=== PATIENT | female | born 1975 | race Caucasian/White ===

== ENCOUNTER 2020-06-23 14:16 | Emergency (ER) | payer MEDICARE, MEDICAID, SELFPAY ==
[2020-06-23 14:30] VITALS: BP 142/100; PULSE 69; RESP 18; TEMP 36.6; O2SAT 100; BMI 25.7
--- NOTE | 2020-06-23 14:47 | XR_ITS ---
WS: [id number] Exam: XR abdomen min 2V [id number] Date/Time of Exam: 06/23/2020 2:47 PM Reason For Exam: chron's disease flare Supine and upright frontal views of the abdomen are submitted. Findings: There is no evidence of bowel obstruction or free air. Visualized organ margins are intact. Bony str uctures of the lumbar spine and pelvis are not remarkable. XR/XR abdomen min 2V [id number] IMPRESSION: Normal abdomen.
[2020-06-23 15:37] VITALS: BP 151/75; PULSE 72; RESP 16; O2SAT 98
--- NOTE | 2020-06-23 15:37 | ED_ITS ---
Documented by User: LUCILA Mcfarlane 06/24/20 10:35 HPI - Abdominal Pain General: Chief Complaint: Abdominal Pain Stated Complaint: Crohn's flare Time Seen by Provider: 06/23/20 15:11 Source: patient Mode of arrival: ambulatory Limitations: no limitations History of Present Illness: HPI narrative: 45-year-old female patient with history of Crohn's disease presents to the emergency department with 2-day onset of nausea vomiting and abdominal pain. She reports periumbilical sharp pain that radiates to her lower pelvis. States taking tramadol for pain is not effective. She denies fever chills, reports diarrhea without blood. She states can not keep food down x 2 days. She has appointment to see Dr. Garcia next week for colonoscopy consult. She is normally on injections for RA/Crohn's disease. She recently moved here from [place]. History of tubal ligation and colonoscopies. Last attempted to eat this morning, 2 bites of hashbrowns. MD elicited complaint: abdominal pain Pertinent past history: other Onset (ago): day(s) (2) Pain Consistency: constant Location: Periumbilical and Suprapubic Severity: moderate Quality: cramping, aching, fullness and sharp Associated Symptoms: Reports bloating, change in bowel habits, GI cramping, nausea, poor appetite and vomiting; Denies chills, constipation, diarrhea, heartburn, hematochezia, hematuria, hematemesis, fecal incontinence and melena Related Data: Date of Last Menstrual Period: 03/28/20 Review of Systems General: Reports: 10 or more systems reviewed and unremarkable except in HPI and below Const: Denies: chills, body aches, fatigue or malaise Eyes: Denies: blurry vision, eye discomfort or eye redness ENMT: Denies: throat pain, dental pain or disequilibrium Card: Denies: chest pain, palpitations or irregular heart rhythm Resp: Denies: dyspnea, productive cough, non-productive cough or wheezing GI: Reports: abdominal pain, nausea, vomiting, bloating, GI cramping and change in bowel habits; Denies: hematemesis, dysphagia, heartburn, diarrhea, constipation, fecal incontinence, pain on defecation, hematochezia or melena : Denies: hematuria Musc: Denies: neck pain, back pain, joint pain, joint warmth, joint stiffness, muscle cramps or muscle weakness Skin/Breast: Denies: rash or pruritus Neuro: Denies: headache(s), weakness in extremities or behavioral changes Henry/Lymph: Denies: easy bruising PFSH ED PFSH: Medical History Crohn's disease Degenerative disc disease Migraine Pulmonary embolism Rheumatoid arthritis Surgical History History of colonoscopy History of tubal ligation Female Reproductive History: Date of last menstrual period: 03/28/20 Physical Exam Const: COMMON NORMALS: no acute distress, patient oriented x3, alert and well nourished EXAM LIMITATIONS: no altered mental status and no physical limitations GENERAL APPEARANCE: cooperative, well kempt, well developed and well hydrated; not in distress, not anxious, not ill appearing and not frail appearing NUTRITIONAL APPEARANCE: overweight ORIENTATION/CONSCIOUSNESS: Yes awake, Yes oriented to person, Yes oriented to place and Yes oriented to time HENMT: COMMON NORMALS: normocephalic, atraumatic, EAC's normal, Normal external nose present and moist oral mucous membranes HEAD & SCALP: normal to inspection, normocephalic and atraumatic FACE & SINUS: normal facial exam and face symmetric NOSE: Normal external nose present GENERAL EAR: hearing grossly impaired EXTERNAL AUDITORY CANAL: EAC's normal MOUTH: moist mucous membranes abnormal (dry) Eye: COMMON NORMALS: Equal, round and reactive pupils present and EOMs intact bilaterally GENERAL EYE: appearance normal, both eyes and all related structures PUPIL: Yes Equal, round and reactive pupils present Neck/C-Spine: COMMON NORMALS: full ROM and no lymphadenopathy GENERAL: Yes normal visual inspection and Yes trachea midline CERVICAL SPINE: Yes cervical ROM normal Lymph: LYMPHATIC: no lymphadenopathy noted Chest: COMMONS NORMALS: normal inspection of the chest and normal palpation of entire chest wall Resp: COMMON NORMALS: normal respiratory effort, No retractions, No use of accessory muscles and clear to auscultation bilaterally EFFORT & INSPECTION: Yes able to speak in complete sentences, No abnormal respiratory pattern, No labored and No audible wheezes AUSCULTATION: clear to auscultation bilaterally Cardio: COMMON NORMALS: regular rate, regular rhythm, S1 normal heart sound present, S2 normal heart sound present and Peripheral pulses 2+ throughout RATE: regular rate RHYTHM: regular rhythm HEART SOUNDS: S1 normal heart sound present and S2 normal heart sound present PERIPHERAL PULSES: Peripheral pulses 2+ throughout GI: COMMON NORMALS: Soft to palpation INSPECTION: Yes normal to inspection, No abdominal wall ecchymosis, Yes abdominal distension, Yes central obesity, No visible herniation and No Localized GI swelling present AUSCULTATION: Yes Hypoactive bowel sounds present PALPATION: Yes Soft to palpation and Yes Tenderness to palpation present (GI) Details: other (Central periumbilical and lower pelvis) : COMMON NORMALS: Yes no CVA tenderness BLADDER/KIDNEY EXAM: Yes no CVA tenderness Back/Pelvis: COMMON NORMALS: no CVA tenderness and thoracic and lumbar spine normal to inspection Extremity: COMMON NORMALS: normal to inspection and capillary refill normal Neuro: COMMON NORMALS: patient oriented x3 and no focal motor deficits SENSORIUM/ORIENTATION: Yes alert, Yes oriented to person, Yes oriented to place and Yes oriented to time Psych: COMMON NORMALS: mental status grossly normal, Normal thought process present and cooperative APPEARANCE: Yes well kempt ACTIVITY/MOTOR BEHAVIOR: Yes appropriate eye contact THOUGHT PROCESS: Normal thought process present Skin: COMMON NORMALS: no rashes or lesions noted and turgor normal GENERAL SKIN EXAM: no rashes or lesions noted and turgor normal Course Vital Signs: Vital signs: Vital Signs Temperature 97.8 F 06/23/20 14:30 Pulse Rate 68 06/23/20 19:16 Respiratory Rate 17 06/23/20 19:16 Blood Pressure 144/80 06/23/20 19:16 Pulse Oximetry 97 06/23/20 19:16 MDM - Abdominal Pain Lab Data: Labs: Lab Results 06/23/20 06/23/20 06/23/20 Range/Units 17:15 17:15 17:15 WBC 3.6 L (4.0-10.0) 10^3/ uL RBC 4.02 L (4.1-5.3) 10^6/u L Hgb 13.0 (11.5-15.3) g/dL Hct 37.4 (37.0-47.0) % MCV 93.0 (81-99) fL MCH 32.3 (28.0-34.0) pg MCHC 34.8 (30.0-36.0) g/dL RDW 12.0 L (12.1-15.1) % Plt Count 276 (130-400) 10^3/c mm MPV 9.7 (7.4-10.4) fL Neut % (Auto) 43.6 % Lymph % (Auto) 41.3 % Logan % (Auto) 10.6 % Eos % (Auto) 2.8 % Baso % (Auto) 1.7 % Neut # (Auto) 1.56 L (1.8-7.7) 10^3/u L Lymph # (Auto) 1.5 (0.8-4.8) 10^3/u L Logan # (Auto) 0.4 (0.2-0.9) 10^3/u L Eos # (Auto) 0.1 (0.0-0.8) 10^3/u L Baso # (Auto) 0.1 (0.0-0.1) 10^3/u L Nucleated RBC % (a uto) 0 % Nucleated RBCs # 0.0 /100WBC ESR 14 (0-15) mm/hr Sodium 138 (136-145) mmol/L Potassium 3.7 (3.5-5.1) mmol/L Chloride 106 (98-107) mmol/L Carbon Dioxide 23 (22-29) mmol/L Anion Gap 12.7 (5-19) BUN 6 (6-20) mg/dL Creatinine 0.7 (0.5-0.9) mg/dL GFR Calculation 90.9 (90-130) mL/min Glucose 83 (65-115) mg/dL Calculated Osmolal ity 283 L (285-295) mOsm/k g Calcium 9.3 (8.5-10.5) mg/dL Total Bilirubin 0.5 (0.15-1.2) mg/dL AST 40 H (0-32) U/L ALT 35 H (0-33) U/L Alkaline Phosphata se 51 (35-105) IU/L C-Reactive Protein 0.3 (0.0-4.9) mg/L Total Protein 7.7 (6.6-8.7) g/dL Albumin 4.2 (3.5-5.2) g/dL Globulin 3.5 (1.3-4.6) g/dL Lipase 29 (13-60) U/L HCG, Qual (Negative) 06/23/20 Range/Units 17:15 WBC (4.0-10.0) 10^3/ uL RBC (4.1-5.3) 10^6/u L Hgb (11.5-15.3) g/dL Hct (37.0-47.0) % MCV (81-99) fL MCH (28.0-34.0) pg MCHC (30.0-36.0) g/dL RDW (12.1-15.1) % Plt Count (130-400) 10^3/c mm MPV (7.4-10.4) fL Neut % (Auto) % Lymph % (Auto) % Logan % (Auto) % Eos % (Auto) % Baso % (Auto) % Neut # (Auto) (1.8-7.7) 10^3/u L Lymph # (Auto) (0.8-4.8) 10^3/u L Logan # (Auto) (0.2-0.9) 10^3/u L Eos # (Auto) (0.0-0.8) 10^3/u L Baso # (Auto) (0.0-0.1) 10^3/u L Nucleated RBC % (a uto) % Nucleated RBCs # /100WBC ESR (0-15) mm/hr Sodium (136-145) mmol/L Potassium (3.5-5.1) mmol/L Chloride (98-107) mmol/L Carbon Dioxide (22-29) mmol/L Anion Gap (5-19) BUN (6-20) mg/dL Creatinine (0.5-0.9) mg/dL GFR Calculation (90-130) mL/min Glucose (65-115) mg/dL Calculated Osmolal ity (285-295) mOsm/k g Calcium (8.5-10.5) mg/dL Total Bilirubin (0.15-1.2) mg/dL AST (0-32) U/L ALT (0-33) U/L Alkaline Phosphata se (35-105) IU/L C-Reactive Protein (0.0-4.9) mg/L Total Protein (6.6-8.7) g/dL Albumin (3.5-5.2) g/dL Globulin (1.3-4.6) g/dL Lipase (13-60) U/L HCG, Qual Negative (Negative) Discharge Plan Discharge Patient Disposition: Home Clinical Impression: Crohn's disease Qualifiers: Gastrointestinal tract location: small intestine Digestive disease complication type: without complication Qualified Code(s): K50.00 - Crohn's disease of small intestine without complications Condition: Stable Prescriptions: New prednisone 50 mg tablet 50 mg PO DAILY 7 Days Qty: 7 RF: 0 Zofran 4 mg tablet 4 mg PO Q8H PRN (Reason: Nausea) Qty: 20 RF: 0 No Action multivitamin Tablet 1 tab PO DAILY RF: 0 BuSpar 5 mg Tablet 5 mg PO TID RF: 0 atorvastatin 10 mg tablet 10 mg PO QAM RF: 0 Celexa 10 mg Tablet 10 mg PO DAILY RF: 0 tramadol 50 mg tablet 50 mg PO Q6H PRN (Reason: Pain) RF: 0 verapamil 120 mg Tablet 120 mg PO BID RF: 0 Benadryl 25 mg Capsule 25 - 50 mg PO PRN RF: 0 Nexium 40 mg Capsule,Delayed Release(Dr/Ec) 40 mg PO DAILY RF: 0 ropinirole 0.5 mg tablet 0.5 mg PO BEDTIME RF: 0 Singulair 10 mg Tablet 10 mg PO QPM RF: 0 Symbicort 80-4.5 mcg/actuation Hfa Aerosol Inhaler 2 puff INHALATION BID RF: 0 melatonin 10 mg Tablet 10 mg PO PRN RF: 0 Emgality Pen 120 mg/mL pen injector 120 mg SUBCUT Q30D RF: 0 Discharge Orders: Discharge ED (Routine); Ordered 06/23/20 Ordered By: Tariq Benitez Referrals: Joaquín Newman MD [Primary Care Provider] - Discharge Diet: Advance as tolerated Discharge Activity: Increase activity as tolerated Patient Instructions: Crohn's Disease Activity Restrictions/Additional Instructions: Follow-up with medical provider as directed. Go to your scheduled appointment with Dr. Garcia next week to reevaluate Crohn's flare. Take medications as prescribed. Return to the ER or your medical provider if condition worsens. Please read and understand discharge instructions. If any questions, please ask. Sign Out Sign Out Data: Patient Sign Out occurred on 06/23/20 at 17:24. Patient's care was discussed, and care was transferred from LUCILA Mcfarlane to JOSE Paez. Sign Out Comment: transfer of care due to end of shift, difficulty with iv insertion, several IV attempts made, lab to obtain serology draw, CT scan abdomen and pelvis pending. Last updated by Fernanda Mohamud ARNP at 06/23/20 16:57 Coding Level of Care Code ED Agricultural Equipment Sales Manager for Chg Fwd Exam Comprehensive Documented by User: JOSE Paez 06/24/20 00:50 HPI - Abdominal Pain General: Chief Complaint: Abdominal Pain Stated Complaint: Crohn's flare Time Seen by Provider: 06/23/20 15:11 PFSH ED PFSH: Medical History Crohn's disease Degenerative disc disease Migraine Pulmonary embolism Rheumatoid arthritis Surgical History History of colonoscopy History of tubal ligation Course Vital Signs: Vital signs: Vital Signs Temperature 97.8 F 06/23/20 14:30 Pulse Rate 68 06/23/20 19:16 Respiratory Rate 17 06/23/20 19:16 Blood Pressure 144/80 06/23/20 19:16 Pulse Oximetry 97 06/23/20 19:16 MDM - Abdominal Pain MDM Narrative: Medical decision making narrative: Patient is a 45-year-old female who comes to the ED with abdominal pain, nausea/vomiting and diarrhea. Patient has a past medical history of Crohn's disease and states that this is similar to her past Crohn's flares. Patient appears nontoxic and is in no acute distress or pain. CBC and CMP were unremarkable. CT of the abdomen pelvis shows small bowel inflammatory signs suggestive of Crohn's disease. Patient was given IV fluids, Dilaudid and Zofran and her symptoms improved. She was also given IV Solu-Medrol while here in the ED. Patient was diagnosed with Crohn's disease and sent home with prescription of prednisone and [place] for pain. Patient already has a previously scheduled appointment with Dr. Mora in a week. Return to ED precautions given. Patient understood and agree with plan. Lab Data: Attestation: I reviewed the patient's lab results. Labs: Lab Results 06/23/20 06/23/20 06/23/20 Range/Units 17:15 17:15 17:15 WBC 3.6 L (4.0-10.0) 10^3/ uL RBC 4.02 L (4.1-5.3) 10^6/u L Hgb 13.0 (11.5-15.3) g/dL Hct 37.4 (37.0-47.0) % MCV 93.0 (81-99) fL MCH 32.3 (28.0-34.0) pg MCHC 34.8 (30.0-36.0) g/dL RDW 12.0 L (12.1-15.1) % Plt Count 276 (130-400) 10^3/c mm MPV 9.7 (7.4-10.4) fL Neut % (Auto) 43.6 % Lymph % (Auto) 41.3 % Logan % (Auto) 10.6 % Eos % (Auto) 2.8 % Baso % (Auto) 1.7 % Neut # (Auto) 1.56 L (1.8-7.7) 10^3/u L Lymph # (Auto) 1.5 (0.8-4.8) 10^3/u L Logan # (Auto) 0.4 (0.2-0.9) 10^3/u L Eos # (Auto) 0.1 (0.0-0.8) 10^3/u L Baso # (Auto) 0.1 (0.0-0.1) 10^3/u L Nucleated RBC % (a uto) 0 % Nucleated RBCs # 0.0 /100WBC ESR 14 (0-15) mm/hr Sodium 138 (136-145) mmol/L Potassium 3.7 (3.5-5.1) mmol/L Chloride 106 (98-107) mmol/L Carbon Dioxide 23 (22-29) mmol/L Anion Gap 12.7 (5-19) BUN 6 (6-20) mg/dL Creatinine 0.7 (0.5-0.9) mg/dL GFR Calculation 90.9 (90-130) mL/min Glucose 83 (65-115) mg/dL Calculated Osmolal ity 283 L (285-295) mOsm/k g Calcium 9.3 (8.5-10.5) mg/dL Total Bilirubin 0.5 (0.15-1.2) mg/dL AST 40 H (0-32) U/L ALT 35 H (0-33) U/L Alkaline Phosphata se 51 (35-105) IU/L C-Reactive Protein 0.3 (0.0-4.9) mg/L Total Protein 7.7 (6.6-8.7) g/dL Albumin 4.2 (3.5-5.2) g/dL Globulin 3.5 (1.3-4.6) g/dL Lipase 29 (13-60) U/L HCG, Qual (Negative) 06/23/20 Range/Units 17:15 WBC (4.0-10.0) 10^3/ uL RBC (4.1-5.3) 10^6/u L Hgb (11.5-15.3) g/dL Hct (37.0-47.0) % MCV (81-99) fL MCH (28.0-34.0) pg MCHC (30.0-36.0) g/dL RDW (12.1-15.1) % Plt Count (130-400) 10^3/c mm MPV (7.4-10.4) fL Neut % (Auto) % Lymph % (Auto) % Logan % (Auto) % Eos % (Auto) % Baso % (Auto) % Neut # (Auto) (1.8-7.7) 10^3/u L Lymph # (Auto) (0.8-4.8) 10^3/u L Logan # (Auto) (0.2-0.9) 10^3/u L Eos # (Auto) (0.0-0.8) 10^3/u L Baso # (Auto) (0.0-0.1) 10^3/u L Nucleated RBC % (a uto) % Nucleated RBCs # /100WBC ESR (0-15) mm/hr Sodium (136-145) mmol/L Potassium (3.5-5.1) mmol/L Chloride (98-107) mmol/L Carbon Dioxide (22-29) mmol/L Anion Gap (5-19) BUN (6-20) mg/dL Creatinine (0.5-0.9) mg/dL GFR Calculation (90-130) mL/min Glucose (65-115) mg/dL Calculated Osmolal ity (285-295) mOsm/k g Calcium (8.5-10.5) mg/dL Total Bilirubin (0.15-1.2) mg/dL AST (0-32) U/L ALT (0-33) U/L Alkaline Phosphata se (35-105) IU/L C-Reactive Protein (0.0-4.9) mg/L Total Protein (6.6-8.7) g/dL Albumin (3.5-5.2) g/dL Globulin (1.3-4.6) g/dL Lipase (13-60) U/L HCG, Qual Negative (Negative) Imaging Data ^: CT Abd/Pel: Attestation: I personally reviewed and interpreted this imaging study as follows: Radiologist's impression: [address] [address] [address] Scan Report Signed Patient: Angie Schultz Unit #: [id number] : 1975 Age/Sex: 45 / F ADM Date: 06/23/20 Loc: ER Room/Bed: Attending Dr: Ordering Provider/Ordering MD: Fernanda Mohamud Date of Service: 06/23/20 Procedure(s): CT abdomen pelvis w con* [id number] Accession Number(s): [id number] Report Number: [id number] PROCEDURE INFORMATION: Exam: CT Abdomen And Pelvis With Contrast Exam date and time: 06/23/2020 4:44 PM Age: 45 years old Clinical indication: Abdominal pain; Patient HX: C/O periumbilical pain w n/v/d HX of crohns dz; Additional info: Chron's disease, abd pain with bloating TECHNIQUE: Imaging protocol: Computed tomography of the abdomen and pelvis with contrast. Radiation optimization: All CT scans at this facility use at least one of these dose optimization techniques: automated exposure control; mA and/or kV adjustment per patient size (includes targeted exams where dose is matched to clinical indication); or iterative reconstruction. Contrast material: OMNI 300; Contrast volume: 95 ml; Contrast route: INTRAVENOUS (IV); COMPARISON: CT Abdomen/Pelvis [facility] [id number] 06/19/2016 6:22 PM RADIATION DOSE METRICS: Total DLP (mGy-cm): 626.65 FINDINGS: Lungs: There is subpleural atelectasis of the dependent portions of the lungs. Mediastinal space: A small hiatal hernia is present. Liver: Unremarkable.No mass. Gallbladder and bile ducts: Normal. No calcified stones. No ductal dilation. Pancreas: Normal. No ductal dilation. Spleen: Normal. No splenomegaly. Adrenal glands: Normal. No mass. Kidneys and ureters: There is no evidence of hydronephrosis. There is no evidence of renal calcifications. Stomach and bowel: There is no evidence of intestinal perforation or obstruction. There is moderately excessive colonic stool content. There is no evidence of colitis/diverticulitis. There is a small bowel feces sign involving loops of bowel in the lower abdomen/pelvis. These loops of bowel also demonstrate mild wall thickening and enhancement concerning for very mild inflammatory changes including Crohn's. The proximal loops of small bowel are unremarkable. There is no evidence of intestinal perforation or obstruction. Appendix: A normal appendix is identified. Intraperitoneal space: Unremarkable. No free air. No significant fluid collection. Vasculature: The aorta is normal. Lymph nodes: Unremarkable.No enlarged lymph nodes. Urinary bladder: The bladder is decompressed. Reproductive: Uterus and left ovary are unremarkable. There is an incidental 1.3 cm right ovarian cyst. Bones/joints: Unremarkable. No acute fracture. Soft tissues: Unremarkable. CT/CT abdomen pelvis w con* [id number] IMPRESSION: Mild wall thickening and small bowel feces sign involving loops of small bowel in the lower abdomen compatible with mild inflammatory changes such as Crohn's. No colitis. Radiation Dose CTDIVOL = (mGy): DLP = 626.65 (mGy-cm) Dictated By: Ratna Le Signed By: Ratna Le Signed Date/Time: 1758 DD/ 56 Discharge Plan Discharge Patient Disposition: Home Clinical Impression: Crohn's disease Qualifiers: Gastrointestinal tract location: small intestine Digestive disease complication type: without complication Qualified Code(s): K50.00 - Crohn's disease of small intestine without complications Condition: Stable Prescriptions: New prednisone 50 mg tablet 50 mg PO DAILY 7 Days Qty: 7 RF: 0 Zofran 4 mg tablet 4 mg PO Q8H PRN (Reason: Nausea) Qty: 20 RF: 0 No Action multivitamin Tablet 1 tab PO DAILY RF: 0 BuSpar 5 mg Tablet 5 mg PO TID RF: 0 atorvastatin 10 mg tablet 10 mg PO QAM RF: 0 Celexa 10 mg Tablet 10 mg PO DAILY RF: 0 tramadol 50 mg tablet 50 mg PO Q6H PRN (Reason: Pain) RF: 0 verapamil 120 mg Tablet 120 mg PO BID RF: 0 Benadryl 25 mg Capsule 25 - 50 mg PO PRN RF: 0 Nexium 40 mg Capsule,Delayed Release(Dr/Ec) 40 mg PO DAILY RF: 0 ropinirole 0.5 mg tablet 0.5 mg PO BEDTIME RF: 0 Singulair 10 mg Tablet 10 mg PO QPM RF: 0 Symbicort 80-4.5 mcg/actuation Hfa Aerosol Inhaler 2 puff INHALATION BID RF: 0 melatonin 10 mg Tablet 10 mg PO PRN RF: 0 Emgality Pen 120 mg/mL pen injector 120 mg SUBCUT Q30D RF: 0 Discharge Orders: Discharge ED (Routine); Ordered 06/23/20 Ordered By: Tariq Benitez Referrals: Joaquín Newman MD [Primary Care Provider] - Discharge Diet: Advance as tolerated Discharge Activity: Increase activity as tolerated Patient Instructions: Crohn's Disease Activity Restrictions/Additional Instructions: Follow-up with medical provider as directed. Go to your scheduled appointment with Dr. Garcia next week to reevaluate Crohn's flare. Take medications as p rescribed. Return to the ER or your medical provider if condition worsens. Please read and understand discharge instructions. If any questions, please ask. Sign Out Sign Out Data: Patient Sign Out occurred on 06/23/20 at 17:24. Patient's care was discussed, and care was transferred from LUCILA Mcfarlane to JOSE Paez. Sign Out Comment: transfer of care due to end of shift, difficulty with iv insertion, several IV attempts made, lab to obtain serology draw, CT scan abdomen and pelvis pending. Last updated by Fernanda Mohamud ARNP at 06/23/20 16:57 Coding Level of Care Code ED Agricultural Equipment Sales Manager for Chg Fwd Exam Comprehensive
--- NOTE | 2020-06-23 15:45 | CTR_ITS ---
PROCEDURE INFORMATION: Exam: CT Abdomen And Pelvis With Contrast Exam date and time: 06/23/2020 4:44 PM Age: 45 years old Clinical indication: Abdominal pain; Patient HX: C/O periumbilical pain w n/v/d HX of crohns dz; Additional info: Chron's disease, abd pain with bloating TECHNIQUE: Imaging protocol: Computed tomography of the abdomen and pelvis with contrast. Radiation optimization: All CT scans at this facility use at least one of these dose optimization techniques: automated exposure control; mA and/or kV adjustment per patient size (includes targeted exams where dose is matched to clinical indication); or iterative reconstruction. Contrast material: OMNI 300; Contrast volume: 95 ml; Contrast route: INTRAVENOUS (IV); COMPARISON: [place]domen[place] o [id number] 06/19/2016 6:22 PM RADIATION DOSE METRICS: Total DLP (mGy-cm): 626.65 FINDINGS: Lungs: There is subpleural atelectasis of the dependent portions of the lungs. Mediastinal space: A small hiatal hernia is present. Liver: Unremarkable.No mass. Gallbladder and bile ducts: Normal. No calcified stones. No ductal dilation. Pancreas: Normal. No ductal dilation. Spleen: Normal. No splenomegaly. Adrenal glands: Normal. No mass. Kidneys and ureters: There is no evidence of hydronephrosis. There is no evidence of renal calcifications. Stomach and bowel: There is no evidence of intestinal perforation or obstruction. There is moderately excessive colonic stool content. There is no evidence of colitis/diverticulitis. There is a small bowel feces sign involving loops of bowel in the lower abdomen/pelvis. These loops of bowel also demonstrate mild wall thickening and enhancement concerning for very mild inflammatory changes including Crohn's. The proximal loops of small bowel are unremarkable. There is no evidence of intestinal perforation or obstruction. Appendix: A normal appendix is identified. Intraperitoneal space: Unremarkable. No free air. No significant fluid collection. Vasculature: The aorta is normal. Lymph nodes: Unremarkable.No enlarged lymph nodes. Urinary bladder: The bladder is decompressed. Reproductive: Uterus and left ovary are unremarkable. There is an incidental 1.3 cm right ovarian cyst. Bones/joints: Unremarkable. No acute fracture. Soft tissues: Unremarkable. CT/CT abdomen pelvis w con* [id number] IMPRESSION: Mild wall thickening and small bowel feces sign involving loops of small bowel in the lower abdomen compatible with mild inflammatory changes such as Crohn's. No colitis. Radiation Dose CTDIVOL = (mGy): DLP = 626.65 (mGy-cm)
[2020-06-23] MEDS: ondansetron 2 mg/ML SDV 2 mL 4 MG IVP (16:57)
[2020-06-23] MEDS: metoclopramide 5 mg/mL SDV 2 mL 10 MG IVP (16:57)
[2020-06-23 17:29] LABS: Basophils # 0.1 10^3/uL (0.0-0.1); Basophils % 1.7 %; Eosinophils # 0.1 10^3/uL (0.0-0.8); Eosinophils % 2.8 %; Hematocrit 37.4 % (37.0-47.0); Lymphocytes # 1.5 10^3/uL (0.8-4.8); Lymphocytes % 41.3 %; Mean Corpuscular HGB Conc 34.8 g/dL (30.0-36.0); Mean Corpuscular Hemoglobin 32.3 pg (28.0-34.0); Mean Platelet Volume 9.7 fL (7.4-10.4); Monocytes # 0.4 10^3/uL (0.2-0.9); Monocytes % 10.6 %; Neutrophils # 1.56 10^3/uL (1.8-7.7); Neutrophils % 43.6 %; Nucleated Red Blood Cells % 0 %; Platelet Count 276 10^3/cmm (130-400); Red Blood Count 4.02 10^6/uL (4.1-5.3); White Blood Count 3.6 10^3/uL (4.0-10.0)
[2020-06-23] MEDS: iohexol 300 mg/mL 100 mL Btl IV (17:33)
[2020-06-23 17:42] LABS: HCG, Serum Qual Negative (Negative)
[2020-06-23 17:56] LABS: Alanine Aminotransferase 35 U/L (0-33); Albumin Level 4.2 g/dL (3.5-5.2); Alkaline Phosphatase 51 IU/L (35-105); Anion Gap 12.7 (5-19); Aspartate Amino Transferase 40 U/L (0-32); Blood Urea Nitrogen 6 mg/dL (6-20); C Reactive Protein 0.3 mg/L (0.0-4.9); Calcium 9.3 mg/dL (8.5-10.5); Carbon Dioxide 23 mmol/L (22-29); Chloride 106 mmol/L (98-107); Globulin 3.5 g/dL (1.3-4.6); Glomerular Filtration Rate 90.9 mL/min (90-130); Glucose 83 mg/dL (65-115); Lipase 29 U/L (13-60); Osmolality Calculated 283 mOsm/kg (285-295); Potassium 3.7 mmol/L (3.5-5.1); Sodium 138 mmol/L (136-145); Total Bilirubin 0.5 mg/dL (0.15-1.2); Total Protein 7.7 g/dL (6.6-8.7)
[2020-06-23 18:15] LABS: Erythrocyte Sedimentation Rate 14 mm/hr (0-15)
[2020-06-23] MEDS: HYDROmorphone 1 mg/mL INJ 1 mL IVP (18:36)
[2020-06-23 19:16] VITALS: BP 144/80; PULSE 68; RESP 17; O2SAT 97
== END 2020-06-23 19:18 | disposition home or self-care (01) ==
PROVIDERS: Nurse Practitioner Family; Emergency Provider Physician Assistant; PCP Family Medicine
DX: K50.00 Crohn's disease of small intestine without complications (principal)
CPT/HCPCS: 36415; 74019; 74177; 80053; 83690; 84703; 85025; 85651; 86140; 96361; 96374; 96375; 99284; J0131; J1170; J2405; J2765; J2930; Q9967

== ENCOUNTER 2020-07-01 02:26 | Emergency (ER) | payer MEDICARE, MEDICAID, SELFPAY ==
[2020-07-01 02:29] VITALS: BP 138/80; PULSE 66; RESP 18; TEMP 36.5; O2SAT 100; BMI 25.7
--- NOTE | 2020-07-01 02:30 | W.ED.PSYCH ---
HPI - Psych General: Chief Complaint: Psychiatric Symptoms Stated Complaint: STRESSED AND ETOH Time Seen by Provider: 07/01/20 02:30 Source: patient Mode of arrival: ambulatory Limitations: no limitations History of Present Illness: HPI Narrative: 45-year-old female comes in today with complaints of alcohol intoxication and stress. Patient states that she had had approximately 3 drinks and had been arguing with her which causes her to get very anxious and stressed. Patient reports that when she gets like this she has seizures and she was concerned that she may have a seizure. Patient then came to the ER for evaluation. Patient denies any suicidal thought or homicidal ideation. Review of Systems General: Reports: 10 or more systems reviewed and unremarkable except in HPI and below Psych: Reports: other (Alcohol intoxication.) PFSH ED PFSH: Medical History Crohn's disease Degenerative disc disease Migraine Pulmonary embolism Rheumatoid arthritis Surgical History History of colonoscopy History of tubal ligation Female Reproductive History: Date of last menstrual period: 03/28/20 Physical Exam Const: COMMON NORMALS: no acute distress and patient oriented x3 GENERAL APPEARANCE: cooperative HENMT: COMMON NORMALS: normocephalic and Normal external nose present HEAD & SCALP: normal to inspection and normocephalic NOSE: Normal external nose present MOUTH: Normal oral and palatal mucosa present Eye: GENERAL EYE: appearance normal, both eyes and all related structures Neck/C-Spine: COMMON NORMALS: full ROM Chest: COMMONS NORMALS: normal inspection of the chest Resp: COMMON NORMALS: normal respiratory effort EFFORT & INSPECTION: Yes able to speak in complete sentences Cardio: COMMON NORMALS: regular rate and regular rhythm RATE: regular rate RHYTHM: regular rhythm GI: COMMON NORMALS: non-tender Back/Pelvis: COMMON NORMALS: thoracic and lumbar spine normal to inspection Extremity: COMMON NORMALS: normal to inspection Neuro: COMMON NORMALS: patient oriented x3 and moves all extremities Psych: COMMON NORMALS: mental status grossly normal and cooperative Skin: COMMON NORMALS: no rashes or lesions noted GENERAL SKIN EXAM: no rashes or lesions noted MDM - Psych MDM Narrative: Medical decision making narrative: Patient comes in today for concerns of pseudoseizure. Patient has a history of seizures when she becomes stressed. On exam patient is intoxicated. Patient responds appropriately. No signs of seizures. Differential diagnosis includes but not limited to anxiety, alcohol intoxication, suicidal ideation. Patient denied any suicidal homicidal intent or thought. Patient was cooperative throughout the exam. And patient denied any other concerns. Discharge Plan Discharge Patient Disposition: Home Clinical Impression: Alcohol intoxication Qualifiers: Complication of substance-induced condition: uncomplicated Qualified Code(s): F10.920 - Alcohol use, unspecified with intoxication, uncomplicated Condition: Stable Prescriptions: No Action multivitamin Tablet 1 tab PO DAILY RF: 0 BuSpar 5 mg Tablet 5 mg PO TID RF: 0 atorvastatin 10 mg tablet 10 mg PO QAM RF: 0 Celexa 10 mg Tablet 10 mg PO DAILY RF: 0 tramadol 50 mg tablet 50 mg PO Q6H PRN (Reason: Pain) RF: 0 verapamil 120 mg Tablet 120 mg PO BID RF: 0 Benadryl 25 mg Capsule 25 - 50 mg PO PRN RF: 0 Nexium 40 mg Capsule,Delayed Release(Dr/Ec) 40 mg PO DAILY RF: 0 ropinirole 0.5 mg tablet 0.5 mg PO BEDTIME RF: 0 Singulair 10 mg Tablet 10 mg PO QPM RF: 0 Symbicort 80-4.5 mcg/actuation Hfa Aerosol Inhaler 2 puff INHALATION BID RF: 0 melatonin 10 mg Tablet 10 mg PO PRN RF: 0 Emgality Pen 120 mg/mL pen injector 120 mg SUBCUT Q30D RF: 0 Zofran 4 mg tablet 4 mg PO Q8H PRN (Reason: Nausea) Qty: 20 RF: 0 Discharge Orders: Discharge ED (Routine); Ordered 07/01/20 Ordered By: Reed Herrera Referrals: Joaquín Newman MD [Primary Care Provider] - Discharge Diet: Usual diet Discharge Activity: Increase activity as tolerated Patient Instructions: Abuse of Alcohol (ED), Opioid Safety Activity Restrictions/Additional Instructions: Home and rest. Drink plenty of fluids. Activity as tolerated. 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
[2020-07-01 02:39] VITALS: BP 138/80; PULSE 118; RESP 18; O2SAT 99
[2020-07-01] MEDS: LORazepam 0.5 mg Tablet PO (02:50)
[2020-07-01 02:51] VITALS: BP 130/83; PULSE 111; RESP 17; O2SAT 98
== END 2020-07-01 02:52 | disposition home or self-care (01) ==
LOC: ER 02:45
PROVIDERS: Emergency Provider Nurse Practitioner Family; PCP Family Medicine
DX: F10.920 Alcohol use, unspecified with intoxication, uncomplicated (principal)
CPT/HCPCS: 99283

== ENCOUNTER 2020-08-05 20:17 | Emergency (ER) | payer MEDICARE, MEDICAID, SELFPAY ==
[2020-08-05 20:27] VITALS: BP 154/116; PULSE 112; RESP 28; TEMP 36.3; O2SAT 100; BMI 25.9
--- NOTE | 2020-08-05 22:08 | ED_ITS ---
HPI - Allergic Reaction General: Chief complaint: Allergic Reaction Stated complaint: allergic reaction Time Seen by Provider: 08/05/20 22:08 Source: patient Mode of arrival: ambulatory Limitations: no limitations History of Present Illness: HPI narrative: Patient comes in today for complaints of rash starting this morning when she woke up. Patient taken 1 dose of doxycycline last night and noticed a rash to her neck and chest this morning. Patient came in tonight for evaluation. Patient appears well and in no distress but occasionally makes a gasping respiration. When questioned about this is patient states that this is due to her bronchitis. Patient is able to talk in full sentences and there is no sign of significant respiratory distress at this time. complaint: other (Rash) Onset (ago): day(s) Exposure: medication Associated symptoms: Reports no associated symptoms Treatment prior to arrival: benadryl Previous Allergic Reaction History: none Review of Systems General: Reports: 10 or more systems reviewed and unremarkable except in HPI and below Skin/Breast: Reports: other (Rash to the neck) [facility] ED PFSH: Medical History Crohn's disease Degenerative disc disease Migraine Pulmonary embolism Rheumatoid arthritis Surgical History History of colonoscopy History of tubal ligation Female Reproductive History: Date of last menstrual period: 03/28/20 Physical Exam Const: COMMON NORMALS: no acute distress and patient oriented x3 GENERAL APPEARANCE: cooperative HENMT: COMMON NORMALS: normocephalic and Normal external nose present HEAD & SCALP: normal to inspection and normocephalic NOSE: Normal external nose present MOUTH: Normal oral and palatal mucosa present THROAT: posterior oropharynx normal Eye: GENERAL EYE: appearance normal, both eyes and all related structures Neck/C-Spine: COMMON NORMALS: full ROM Lymph: LYMPHATIC: no lymphadenopathy noted Chest: COMMONS NORMALS: normal inspection of the chest Resp: COMMON NORMALS: normal respiratory effort and clear to auscultation bilaterally EFFORT & INSPECTION: Yes able to speak in complete sentences AUSCULTATION: clear to auscultation bilaterally Cardio: COMMON NORMALS: regular rate and regular rhythm RATE: regular rate RHYTHM: regular rhythm GI: COMMON NORMALS: non-tender Back/Pelvis: COMMON NORMALS: thoracic and lumbar spine normal to inspection Extremity: COMMON NORMALS: normal to inspection Neuro: COMMON NORMALS: patient oriented x3 and moves all extremities Psych: COMMON NORMALS: mental status grossly normal and cooperative Skin: NARRATIVE SKIN EXAM: Macular rash noted to the neck and upper torso. Course Vital Signs: Vital signs: Vital Signs Temperature 97.3 F L 08/05/20 20:27 Pulse Rate 95 08/05/20 22:36 Respiratory Rate 18 08/05/20 22:36 Blood Pressure 138/105 08/05/20 22:36 Pulse Oximetry 99 08/05/20 22:36 MDM - Allergic Reaction MDM Narrative: Medical decision making narrative: Patient comes in for concerns of a rash. Patient had taken a dose of doxycycline awakened the next morning with a rash to the neck and upper torso. Patient appears well. Patient appears no acute distress. On exam I know macular rash to the neck and upper torso. Lungs are clear to auscultation. Posterior pharynx is open without any signs of swelling or asymmetry. There is no wheezing on lung moyer or signs of angioedema. Vital signs are normal. Differential diagnosis includes but not limited to adverse drug reaction, tinea rash, anaphylaxis. No signs of anaphylaxis was noted. Patient probably has an adverse drug reaction causing a rash although the rash appears to be more like a tinea versicolor. Patient was treated with a dose of Benadryl and steroid in the ER recommended to hold the doxycycline and talk with primary care for further instruction on different medication to use. Patient had no fever or other signs suggesting that she needs further antibiotic treatment at this time. Patient reported understanding and agreed. Discharge Plan Discharge Patient Disposition: Home Clinical Impression: Adverse reaction to drug Qualifiers: Encounter type: initial encounter Qualified Code(s): T50.905A - Adverse effect of unspecified drugs, medicaments and biological substances, initial encounter Condition: Stable Prescriptions: No Action multivitamin Tablet 1 tab PO DAILY RF: 0 BuSpar 5 mg Tablet 5 mg PO TID RF: 0 atorvastatin 10 mg tablet 10 mg PO QAM RF: 0 Celexa 10 mg Tablet 10 mg PO DAILY RF: 0 tramadol 50 mg tablet 50 mg PO Q6H PRN (Reason: Pain) RF: 0 verapamil 120 mg Tablet 120 mg PO BID RF: 0 Benadryl 25 mg Capsule 25 - 50 mg PO PRN RF: 0 Nexium 40 mg Capsule,Delayed Release(Dr/Ec) 40 mg PO DAILY RF: 0 ropinirole 0.5 mg tablet 0.5 mg PO BEDTIME RF: 0 Singulair 10 mg Tablet 10 mg PO QPM RF: 0 Symbicort 80-4.5 mcg/actuation Hfa Aerosol Inhaler 2 puff INHALATION BID RF: 0 melatonin 10 mg Tablet 10 mg PO PRN RF: 0 Emgality Pen 120 mg/mL pen injector 120 mg SUBCUT Q30D RF: 0 Zofran 4 mg tablet 4 mg PO Q8H PRN (Reason: Nausea) Qty: 20 RF: 0 Discharge Orders: Discharge ED (Routine); Ordered 08/05/20 Ordered By: Reed Herrera Referrals: Joaquín Newman MD [Primary Care Provider] - Discharge Diet: Usual diet Discharge Activity: Increase activity as tolerated Patient Instructions: Acute Bronchitis (ED), Opioid Safety Activity Restrictions/Additional Instructions: Avoid further use of doxycycline. Drink plenty of water. Use Benadryl as needed for itching and rash. Continue with inhalers as directed. Follow-up with primary care in 3 days for recheck. Return to the emergency department for new concerns. 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
[2020-08-05 22:36] VITALS: BP 138/105; PULSE 95; RESP 18; O2SAT 99
[2020-08-05] MEDS: diphenhydrAMINE 50 mg/mL SDV 1mL IM (22:38)
[2020-08-05] MEDS: dexamethasone 10 mg/mL INJ IM (22:40)
[2020-08-05 22:55] VITALS: PULSE 101; RESP 22; O2SAT 99
[2020-08-05] MEDS: ipratropium-albuterol 3 mL Neb INHALATION (22:55)
[2020-08-05 22:59] VITALS: PULSE 103
[2020-08-05 23:07] VITALS: BP 140/83; PULSE 111; RESP 24; O2SAT 96
== END 2020-08-05 23:07 | disposition home or self-care (01) ==
PROVIDERS: Emergency Provider Nurse Practitioner Family; PCP Family Medicine
DX: T88.7XXA Unspecified adverse effect of drug or medicament, initial encounter (principal); T50.905A Adverse effect of unspecified drugs, medicaments and biological substances, initial encounter
CPT/HCPCS: 94640; 96372; 99283; J1100; J1200

== ENCOUNTER → 2020-08-22 15:06 | Outpatient (BNVA) | payer MEDICARE, MEDICAID, SELFPAY | PROVIDERS: PCP Family Medicine; Visit Provider Internal Medicine | DX: K50.90 Crohn's disease, unspecified, without complications (principal); R09.1 Pleurisy; R63.4 Abnormal weight loss | CPT/HCPCS: 80053; 85025; 85651; 86140 ==

== ENCOUNTER 2020-09-01 17:56 | Emergency (ER) | payer MEDICARE, MEDICAID, SELFPAY ==
[2020-09-01 17:59] VITALS: BP 135/87; PULSE 82; RESP 18; O2SAT 99; BMI 26.6
--- NOTE | 2020-09-01 18:08 | XRR_ITS ---
PROCEDURE INFORMATION: Exam: XR Right Foot Complete; Alignment Exam date and time: 09/01/2020 6:09 PM Age: 45 years old Clinical indication: Trauma. Kicked cleat. Pain. TECHNIQUE: Imaging protocol: XR Right foot. Views: 3 or more views. Including weight bearing lateral view. COMPARISON: No relevant prior studies available. FINDINGS: There is a moderate hallux valgus deformity with small bunion. No fracture, dislocation or subluxation. No periosteal reaction or supsicious bone lesion. No calcaneal spur. The visualized Achilles tendon is grossly normal in morphology. No tibiotalar joint effusion. XR/XR foot RT min 3V* [id number] IMPRESSION: 1. No acute fracture is seen. 2. Moderate hallux valgus deformity with small bunion.
--- NOTE | 2020-09-01 18:08 | XRR_ITS ---
PROCEDURE INFORMATION: Exam: XR Right Ankle Exam date and time: 09/01/2020 6:09 PM Age: 45 years old Clinical indication: Injury or trauma; Other: Kicked cleat; Blunt trauma; Ankle; Right; Additional info: Pain TECHNIQUE: Imaging protocol: XR Right ankle. Views: 3 or more views. COMPARISON: No relevant prior studies available. FINDINGS: The ankle mortise is symmetric. No osteochondral lesion is seen. No calcaneal spur.The visualized Achilles tendon is grossly normal in morphology. No tibiotalar joint effusion. No fracture, dislocation or subluxation. No periosteal reaction or supsicious bone lesion. XR/XR ankle RT min 3V* [id number] IMPRESSION: No acute fracture is identified.
--- NOTE | 2020-09-01 18:24 | ED_ITS ---
HPI - Extremity Problem General: Chief complaint: Extremity Injury, Lower Stated complaint: RLE INJURY Time Seen by Provider: 09/01/20 18:21 History of Present Illness: HPI Narrative: Patient states that her right #2 and 3 toe collided with a 12-year-old cleat and now she has pain extending from his toes up to her ankle. This happened approximately an hour or 2 ago. Says it hurts to bear weight. Complaint: extremity pain Onset (ago): hour(s) Pain Consistency: constant Location: right and lower extremity Severity scale (1-10): 4 Quality: aching Radiation: proximal Relieving factors: immobilization Exacerbating factors: range of motion and weight bearing Associated symptoms: Reports no associated symptoms; Deny fever(s) Review of Systems Const: Denies: fever(s) or chills Resp: Denies: dyspnea Musc: Reports: extremity pain (Right foot #2 and 3 toe and right ankle) Psych: Denies: anxiety PFSH ED PFSH: Medical History Crohn's disease Degenerative disc disease Migraine Pulmonary embolism Rheumatoid arthritis Surgical History History of colonoscopy History of tubal ligation Social History (Updated 08/22/20 @ 14:27 by Shahnaz Mckinney, CT) Smoking and tobacco status: former smoker Alcohol intake: current Alcohol intake frequency: holidays/special occasions only Adopted: No Number of children: 3 service: No History of recent travel: No Female Reproductive History: Date of last menstrual period: 03/28/20 Physical Exam Const: COMMON NORMALS: no acute distress Extremity: RIGHT LOWER EXTREMITY: Yes foot & digits (No swelling no erythema full range of motion, pain with palpation) and Yes foot & digits (Pain right #2 in 3 toe. No swelling no bruising good range of motion) Right foot and digits: Yes palpation (Tender) Psych: COMMON NORMALS: mental status grossly normal Course Vital Signs: Vital signs: Vital Signs Pulse Rate 82 09/01/20 17:59 Respiratory Rate 18 09/01/20 17:59 Blood Pressure 135/87 09/01/20 17:59 Pulse Oximetry 99 09/01/20 17:59 Discharge Plan Discharge Prescriptions: No Action eszopiclone [Lunesta] 3 mg tablet 3 mg PO .prn RF: 0 prednisone 10 mg tablet See Rx Instructions .Route .COMPLEX Qty: 1 RF: 0 multivitamin Tablet 1 tab PO DAILY RF: 0 BuSpar 5 mg Tablet 5 mg PO TID RF: 0 atorvastatin 10 mg tablet 10 mg PO QAM RF: 0 Celexa 10 mg Tablet 10 mg PO DAILY RF: 0 tramadol 50 mg tablet 50 mg PO Q6H PRN (Reason: Pain) RF: 0 verapamil 120 mg Tablet 120 mg PO BID RF: 0 Benadryl 25 mg Capsule 25 - 50 mg PO PRN RF: 0 Nexium 40 mg Capsule,Delayed Release(Dr/Ec) 40 mg PO DAILY RF: 0 ropinirole 0.5 mg tablet 0.5 mg PO BEDTIME RF: 0 Singulair 10 mg Tablet 10 mg PO QPM RF: 0 Symbicort 80-4.5 mcg/actuation Hfa Aerosol Inhaler 2 puff INHALATION BID RF: 0 melatonin 10 mg Tablet 10 mg PO PRN RF: 0 Emgality Pen 120 mg/mL pen injector 120 mg SUBCUT Q30D RF: 0 Zofran 4 mg tablet 4 mg PO Q8H PRN (Reason: Nausea) Qty: 20 RF: 0 Coding Level of Care Code ED 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
[2020-09-01 18:52] VITALS: BP 130/80; PULSE 80; RESP 18; O2SAT 97
== END 2020-09-01 18:50 | disposition home or self-care (01) ==
PROVIDERS: Emergency Provider Nurse Practitioner Family; PCP Family Medicine
DX: M79.671 Pain in right foot (principal); Z87.891 Personal history of nicotine dependence
CPT/HCPCS: 73610; 73630; 99282

== ENCOUNTER → 2020-09-20 07:36 | Day surgery (SDC) | payer MEDICARE, MEDICAID, SELFPAY ==
[2020-09-20 07:53] VITALS: BMI 26.4
[2020-09-20 07:56] VITALS: BP 130/78; PULSE 86; RESP 18; TEMP 36.9; O2SAT 99
== END ==
PROVIDERS: PCP Family Medicine; Visit Provider Internal Medicine
DX: M81.8 Other osteoporosis without current pathological fracture (principal)
CPT/HCPCS: 96365; 96366; J1745; J7050

== ENCOUNTER → 2020-11-17 08:06 | Day surgery (SDC) | payer MEDICARE, MEDICAID, SELFPAY ==
[2020-11-17 08:19] VITALS: BP 120/71; PULSE 88; RESP 18; TEMP 36.3; O2SAT 99; BMI 24.8
== END ==
PROVIDERS: PCP Family Medicine; Visit Provider Internal Medicine
DX: K50.90 Crohn's disease, unspecified, without complications (principal)
CPT/HCPCS: 96365; 96366; J1745; J7050

== ENCOUNTER 2020-12-08 12:59 | Emergency (ER) | payer MEDICARE, MEDICAID, SELFPAY ==
[2020-12-08 13:12] VITALS: BP 113/63; PULSE 72; RESP 15; TEMP 36.7; O2SAT 100; BMI 27.4
--- NOTE | 2020-12-08 13:35 | XR_ITS ---
WS: [id number] Chest with right rib detail, 12/08/2020 Clinical Data: pain fall Comparison: Portable chest, 07/20/2016. Findings: The lungs show no nodules, masses, or effusions. The heart is normal. No pneumonia or pneumothorax is seen. The ribs are intact. No rib fractures seen. No subcutaneous emphysema is present. XR/XR ribs RT mn 3V w CXR1V [id number] Impression: Negative chest with right rib detail.
--- NOTE | 2020-12-08 13:35 | XR_ITS ---
WS: [id number] Right shoulder, 3 views, 12/08/2020 Clinical Data: pain fall Comparison: Right shoulder, 02/16/2016. Findings: No fractures or dislocations are seen. The AC joint is normal. The adjacent right clavicle, right sca pula and ribs are normal. The soft tissues are unremarkable. XR/XR shoulder RT min 2V* [id number] Impression: Negative right shoulder.
--- NOTE | 2020-12-08 13:44 | ED_ITS ---
HPI - Fall General: Chief Complaint: Fall Stated Complaint: rib, shoulder, arm pain/ fell down stairs Time Seen by Provider: 12/08/20 13:24 History of Present Illness: HPI Narrative: Patient complains of pain right several ribs and on her shoulder after fell down stairs yesterday. complaint: fall Onset (ago): day(s) Fall from: standing Fall witnessed: yes, by family Place fall occurred: home Loss of consciousness: None Prolonged down time: no Symptoms prior to fall: none Context: tripped/slipped Severity: mild Severity scale (1-10): 2 Quality: aching Associated symptoms-after fall: Reports no associated symptoms; Denies abdominal pain, chest pain or headache(s) Review of Systems Const: Denies: fever(s), chills or body aches Eyes: Denies: change in vision or blurry vision ENMT: Denies: throat pain or nasal congestion Card: Denies: chest pain or dyspnea on exertion Resp: Denies: dyspnea, productive cough or non-productive cough GI: Denies: abdominal pain, nausea or vomiting Musc: Reports: extremity pain (Right shoulder pain and right rib pain from fall) Skin/Breast: Denies: rash Neuro: Denies: headache(s) Psych: Denies: anxiety or depression Henry/Lymph: Denies: easy bruising PFSH ED PFSH: Medical History Crohn's disease Degenerative disc disease Migraine Pulmonary embolism Rheumatoid arthritis Surgical History History of colonoscopy History of tubal ligation Social History (Updated 08/22/20 @ 14:27 by Shahnaz Mckinney, CT) Smoking and tobacco status: former smoker Alcohol intake: current Alcohol intake frequency: holidays/special occasions only Adopted: No Number of children: 3 service: No History of recent travel: No Female Reproductive History: Date of last menstrual period: 03/28/20 Physical Exam Const: COMMON NORMALS: no acute distress, average body habitus and patient oriented x3 HENMT: COMMON NORMALS: normocephalic HEAD & SCALP: normal to inspection and normocephalic FACE & SINUS: normal facial exam Eye: COMMON NORMALS: conjunctivae normal GENERAL EYE: appearance normal, both eyes and all related structures CONJUNCTIVA: Yes conjunctivae normal Neck/C-Spine: COMMON NORMALS: no JVD Chest: CHEST: Yes abnormal inspection of the chest (Tenderness right mid rib area no bruising swelling noted pain with palpatio) Resp: COMMON NORMALS: normal respiratory effort and clear to auscultation bilaterally AUSCULTATION: clear to auscultation bilaterally Cardio: COMMON NORMALS: no JVD, regular rate and regular rhythm RATE: regular rate RHYTHM: regular rhythm GI: COMMON NORMALS: Normal to inspection, nondistended, normoactive bowel sounds present Extremity: COMMON NORMALS: normal to inspection and full ROM RIGHT UPPER EXTREMITY: Yes shoulder joint (Tenderness range of motion no swelling bruising noted.) Neuro: COMMON NORMALS: patient oriented x3 Course Vital Signs: Vital signs: Vital Signs Temperature 98.1 F 12/08/20 13:12 Pulse Rate 72 12/08/20 13:12 Respiratory Rate 15 12/08/20 13:12 Blood Pressure 113/63 12/08/20 13:12 Pulse Oximetry 100 12/08/20 13:12 Discharge Plan Discharge Prescriptions: No Action eszopiclone [Lunesta] 3 mg tablet 3 mg PO .prn RF: 0 multivitamin Tablet 1 tab PO DAILY RF: 0 buspirone [BuSpar] 5 mg Tablet 5 mg PO TID RF: 0 atorvastatin 10 mg tablet 10 mg PO QAM RF: 0 citalopram [Celexa] 10 mg Tablet 10 mg PO DAILY RF: 0 tramadol 50 mg tablet 50 mg PO Q6H PRN (Reason: Pain) RF: 0 verapamil 120 mg Tablet 120 mg PO BID RF: 0 diphenhydramine HCl [Benadryl] 25 mg Capsule 25 - 50 mg PO PRN RF: 0 esomeprazole magnesium [Nexium] 40 mg Capsule,Delayed Release(Dr/Ec) 40 mg PO DAILY RF: 0 ropinirole 0.5 mg tablet 0.5 mg PO BEDTIME RF: 0 montelukast [Singulair] 10 mg Tablet 10 mg PO QPM RF: 0 budesonide-formoterol [Symbicort] 80-4.5 mcg/actuation Hfa Aerosol Inhaler 2 puff INHALATION BID RF: 0 melatonin 10 mg Tablet 10 mg PO PRN RF: 0 Emgality Pen 120 mg/mL pen injector 120 mg SUBCUT Q30D RF: 0 clonazepam 0.5 mg tablet 0.5 mg PO DAILY RF: 0 Coding Level of Care Code ED [employer] Erp Architect for Bonita Knight
[2020-12-08] MEDS: acetaminophen 500 mg Tablet 1000 MG PO (13:50)
--- NOTE | 2020-12-08 13:57 | PC.NURSE ---
Pt arrives to ED with c/o R-rib pain. She fell down 3 steps last night, now c/o 9/10 pain, no deformity or bruising of the ribs noted. Tylenol administered, warm blanket provided, pt to X-ray.
== END 2020-12-08 14:39 | disposition home or self-care (01) ==
PROVIDERS: Emergency Provider Nurse Practitioner Family; PCP Family Medicine
DX: R07.81 Pleurodynia (principal); M25.511 Pain in right shoulder; M79.601 Pain in right arm; Z87.891 Personal history of nicotine dependence
CPT/HCPCS: 71101; 73030; 99283

== ENCOUNTER 2020-12-15 22:14 | Emergency (ER) | payer MEDICARE, MEDICAID, SELFPAY ==
[2020-12-15 22:16] VITALS: BP 145/91; PULSE 88; RESP 18; TEMP 36.4; O2SAT 100; BMI 27.4
--- NOTE | 2020-12-15 22:37 | ECG_ITS ---
[facility] Test Date: 2020-12-15 Pat Name: Angie Schultz Department: Room: Gender: Female [employer] Director: : 1975 Requested By: Taiwo Potter Order Number: [id number] MD: Luci Hewitt M.D. Measurements Intervals [place] Rate: 93 P: 55 NV: 151 QRS: 48 QRSD: 91 T: 40 QT: 369 QTc: 459 Interpretive Statements SINUS RHYTHM POSSIBLE RIGHT VENTRICULAR CONDUCTION DELAY [RSR (QR) IN V1/V2] Compared to ECG 05/24/2016 05:08:12 No significant changes Electronically Signed On 12-16-2020 13:03:45 CDT by Luci Hewitt M.D. [email or web address]
[2020-12-15 23:00] VITALS: BP 135/90; PULSE 101; RESP 18; O2SAT 96
[2020-12-15 23:01] LABS: Basophils # 0.1 10^3/uL (0.0-0.1); Basophils % 1.3 %; Eosinophils # 0.1 10^3/uL (0.0-0.8); Eosinophils % 1.3 %; Hematocrit 38.7 % (37.0-47.0); Lymphocytes # 1.6 10^3/uL (0.8-4.8); Lymphocytes % 33.8 %; Mean Corpuscular HGB Conc 33.6 g/dL (30.0-36.0); Mean Corpuscular Hemoglobin 30.2 pg (28.0-34.0); Mean Corpuscular Volume 89.8 fl (81-99); Mean Platelet Volume 9.7 fL (7.4-10.4); Monocytes # 0.4 10^3/uL (0.2-0.9); Monocytes % 8.9 %; Neutrophils # 2.56 10^3/uL (1.8-7.7); Neutrophils % 54.5 %; Nucleated Red Blood Cells % 0 %; Platelet Count 264 10^3/cmm (130-400); Red Blood Count 4.31 10^6/uL (4.1-5.3); Red Cell Distribution Width 11.8 % (12.1-15.1); White Blood Count 4.7 10^3/uL (4.0-10.0)
[2020-12-15] MEDS: sodium chloride 0.9% 1,000 ML 999 ML IV (23:11)
[2020-12-15] MEDS: haloperidol inj 5 mg/mL INJ 1 mL 2 MG IVP (23:12)
[2020-12-15] MEDS: LORazepam 2 mg/mL INJ 1 mL 1 MG IVP (23:12)
[2020-12-15 23:23] LABS: Alanine Aminotransferase 22 U/L (0-33); Albumin Level 4.2 g/dL (3.5-5.2); Alcohol Level 155 mg/dL (0-10); Alkaline Phosphatase 83 IU/L (35-105); Anion Gap 14.4 (5-19); Aspartate Amino Transferase 30 U/L (0-32); Blood Urea Nitrogen 8 mg/dL (6-20); Calcium 8.8 mg/dL (8.5-10.5); Carbon Dioxide 21 mmol/L (22-29); Chloride 111 mmol/L (98-107); Globulin 3.6 g/dL (1.3-4.6); Glomerular Filtration Rate 108.6 mL/min (90-130); Glucose 89 mg/dL (65-115); Osmolality Calculated 294 mOsm/kg (285-295); Phosphorus 2.3 mg/dL (2.5-4.5); Potassium 3.4 mmol/L (3.5-5.1); Sodium 143 mmol/L (136-145); Total Bilirubin 0.3 mg/dL (0.15-1.2); Total Protein 7.8 g/dL (6.6-8.7)
[2020-12-15 23:47] LABS: Amphetamines Screen Urine Negative (Negative); Barbiturates Screen Urine Negative (Negative); Benzodiazepines Screen Urine Negative (Negative); Cocaine Screen Urine Negative (Negative); Opiate Screen Urine Negative (Negative); PCP Screen Urine Negative (Negative); THC Screen Urine Negative (Negative)
[2020-12-15 23:51] LABS: Add Urine Microscopic? YES; Bilirubin Urine Neg (Negative); Blood Urine 3+ (Negative); Glucose Urine UA Norm (Normal); Ketones Urine Negative (Negative); Leukocyte Esterase Urine Negative (Negative); Nitrate Urine Negative (Negative); Protein Urine Neg (Negative); Urine Appearance Clear (CLEAR); Urine Color Straw (Yellow); Urobilinogen Urine Norm (Negative); pH Urine 5 (5-7)
[2020-12-15 23:52] LABS: Add Urine Culture? No; RBC Urine 0-4 /hpf (0-2)
[2020-12-16] VITALS: BP 133/67; PULSE 84; RESP 18; O2SAT 98
--- NOTE | 2020-12-16 00:21 | ED_ITS ---
HPI - Seizure General: Chief Complaint: Seizure Stated Complaint: SEIZURE Time Seen by Provider: 12/15/20 22:17 History of Present Illness: HPI Narrative: 45-year-old female presenting with jerking movements, and abnormal breathing. She notes that she has a history of pseudoseizure, brought on by stress. She notes that she has been having a very stressful time lately with family, work, etc. She says she has had multiple episodes today of this. Her last episode of this was a couple of months ago she says. She notes a history of living in [place], where she was kept in the hospital 3 to 4 days, and multiple tests were run to determine she had pseudo seizures. MD complaint: possible seizure Onset (ago): hour(s) Description of Episode: tonic-clonic movement -: minutes(s) Witnessed: Yes - by Bystander Trauma: No Associated symptoms: Reports confusion; Deny chest pain, chills, cough, fever(s), short of breath, syncope or weakness Review of Systems Const: Denies: fever(s) or chills Card: Denies: chest pain or syncope Neuro: Reports: confusion PFSH ED PFSH: Medical History Crohn's disease Degenerative disc disease Migraine Pulmonary embolism Rheumatoid arthritis Surgical History History of colonoscopy History of tubal ligation Social History (Updated 08/22/20 @ 14:27 by Shahnaz Mckinney, [place]) Smoking and tobacco status: former smoker Alcohol intake: current Alcohol intake frequency: holidays/special occasions only Adopted: No Number of children: 3 service: No History of recent travel: No Female Reproductive History: Date of last menstrual period: 03/28/20 Physical Exam Const: COMMON NORMALS: patient oriented x3 and alert Chest: COMMONS NORMALS: normal inspection of the chest Resp: COMMON NORMALS: normal respiratory effort, No use of accessory muscles and clear to auscultation bilaterally AUSCULTATION: clear to auscultation bilaterally Cardio: COMMON NORMALS: regular rate and regular rhythm RATE: regular rate RHYTHM: regular rhythm GI: COMMON NORMALS: Normal to inspection, nondistended, normoactive bowel sounds present PALPATION: No Tenderness to palpation present (GI) Neuro: [place] COMA SCALE: document GCS findings [place] coma scale eye opening: Spontaneous [place] coma scale verbal response: Orientated [place] coma scale motor response: Obey commands [place] coma scale total score: 15 COMMON NORMALS: patient oriented x3 SENSORIUM/ORIENTATION: Yes alert CRANIAL NERVES: Yes CN normal except as noted SPEECH: speech normal OTHER: Patient lying supine, in bed. Rhythmic movements of head noted. Extremities are not exhibiting tonic-clonic movement. She is answering questions Course Vital Signs: Vital signs: Vital Signs Temperature 97.6 F 12/15/20 22:16 Pulse Rate 84 12/16/20 00:00 Respiratory Rate 18 12/16/20 00:00 Blood Pressure 133/67 12/16/20 00:00 Pulse Oximetry 98 12/16/20 00:00 MDM - Seizure MDM Narrative: Medical decision making narrative: Patient was given small doses of Haldol and Ativan IV. This is resolved her pseudoseizure. Her laboratory is benign. Her EKG is normal. She will be allowed home. Lab Data: Labs: Lab Results 12/15/20 12/15/20 12/15/20 Range/Units 22:45 22:45 23:27 WBC 4.7 (4.0-10.0) 10^3/ uL RBC 4.31 (4.1-5.3) 10^6/u L Hgb 13.0 (11.5-15.3) g/dL Hct 38.7 (37.0-47.0) % MCV 89.8 (81-99) fl MCH 30.2 (28.0-34.0) pg MCHC 33.6 (30.0-36.0) g/dL RDW 11.8 L (12.1-15.1) % Plt Count 264 (130-400) 10^3/c mm MPV 9.7 (7.4-10.4) fL Neut % (Auto) 54.5 % Lymph % (Auto) 33.8 % [place] % (Auto) 8.9 % Eos % (Auto) 1.3 % Baso % (Auto) 1.3 % Neut # (Auto) 2.56 (1.8-7.7) 10^3/u L Lymph # (Auto) 1.6 (0.8-4.8) 10^3/u L [place] # (Auto) 0.4 (0.2-0.9) 10^3/u L Eos # (Auto) 0.1 (0.0-0.8) 10^3/u L Baso # (Auto) 0.1 (0.0-0.1) 10^3/u L Nucleated RBC % (a uto) 0 % Nucleated RBCs # 0.0 /100WBC Sodium 143 (136-145) mmol/L Potassium 3.4 L (3.5-5.1) mmol/L Chloride 111 H (98-107) mmol/L Carbon Dioxide 21 L (22-29) mmol/L Anion Gap 14.4 (5-19) BUN 8 (6-20) mg/dL Creatinine 0.6 (0.5-0.9) mg/dL GFR Calculation 108.6 (90-130) mL/min Glucose 89 (65-115) mg/dL Calculated Osmolal ity 294 (285-295) mOsm/k g Calcium 8.8 (8.5-10.5) mg/dL Phosphorus 2.3 L (2.5-4.5) mg/dL Magnesium 2.0 (1.7-2.3) mg/dL Total Bilirubin 0.3 (0.15-1.2) mg/dL AST 30 (0-32) U/L ALT 22 (0-33) U/L Alkaline Phosphata se 83 (35-105) IU/L Total Protein 7.8 (6.6-8.7) g/dL Albumin 4.2 (3.5-5.2) g/dL Globulin 3.6 (1.3-4.6) g/dL Urine Color Straw (Yellow) Urine Appearance Clear (CLEAR) Urine pH 5 (5-7) Ur Specific Gravit y 1.000 L (1.005-1.030) Urine Protein Neg (Negative) Urine Glucose (UA) Norm (Normal) Urine Ketones Negative (Negative) Urine Blood 3+ H (Negative) Urine Nitrate Negative (Negative) Urine Bilirubin Neg (Negative) Urine Urobilinogen Norm (Negative) mg/dL Ur Leukocyte Denise ase Negative (Negative) Urine RBC 0-4 H (0-2) /hpf Urine WBC Not Reportable Ur Squamous Epith Cells Not Reportable Amorphous Sediment Not Reportable Urine Bacteria Not Reportable Urine Opiates Scre en (Negative) ng/mL Ur Barbiturates Sc reen (Negative) ng/mL Ur Phencyclidine S crn (Negative) ng/mL Ur Amphetamines Sc reen (Negative) ng/mL U Benzodiazepines Scrn (Negative) ng/mL Urine Cocaine Scre en (Negative) ng/mL U Marijuana (THC) Screen (Negative) ng/mL Ethyl Alcohol 155 H (0-10) mg/dL 12/15/20 Range/Units 23:27 WBC (4.0-10.0) 10^3/ uL RBC (4.1-5.3) 10^6/u L Hgb (11.5-15.3) g/dL Hct (37.0-47.0) % MCV (81-99) fl MCH (28.0-34.0) pg MCHC (30.0-36.0) g/dL RDW (12.1-15.1) % Plt Count (130-400) 10^3/c mm MPV (7.4-10.4) fL Neut % (Auto) % Lymph % (Auto) % [place] % (Auto) % Eos % (Auto) % Baso % (Auto) % Neut # (Auto) (1.8-7.7) 10^3/u L Lymph # (Auto) (0.8-4.8) 10^3/u L [place] # (Auto) (0.2-0.9) 10^3/u L Eos # (Auto) (0.0-0.8) 10^3/u L Baso # (Auto) (0.0-0.1) 10^3/u L Nucleated RBC % (a uto) % Nucleated RBCs # /100WBC Sodium (136-145) mmol/L Potassium (3.5-5.1) mmol/L Chloride (98-107) mmol/L Carbon Dioxide (22-29) mmol/L Anion Gap (5-19) BUN (6-20) mg/dL Creatinine (0.5-0.9) mg/dL GFR Calculation (90-130) mL/min Glucose (65-115) mg/dL Calculated Osmolal ity (285-295) mOsm/k g Calcium (8.5-10.5) mg/dL Phosphorus (2.5-4.5) mg/dL Magnesium (1.7-2.3) mg/dL Total Bilirubin (0.15-1.2) mg/dL AST (0-32) U/L ALT (0-33) U/L Alkaline Phosphata se (35-105) IU/L Total Protein (6.6-8.7) g/dL Albumin (3.5-5.2) g/dL Globulin (1.3-4.6) g/dL Urine Color (Yellow) Urine Appearance (CLEAR) Urine pH (5-7) Ur Specific Gravit y (1.005-1.030) Urine Protein (Negative) Urine Glucose (UA) (Normal) Urine Ketones (Negative) Urine Blood (Negative) Urine Nitrate (Negative) Urine Bilirubin (Negative) Urine Urobilinogen (Negative) mg/dL Ur Leukocyte Denise ase (Negative) Urine RBC (0-2) /hpf Urine WBC Ur Squamous Epith Cells Amorphous Sediment Urine Bacteria Urine Opiates Scre en Negative (Negative) ng/mL Ur Barbiturates Sc reen Negative (Negative) ng/mL Ur Phencyclidine S crn Negative (Negative) ng/mL Ur Amphetamines Sc reen Negative (Negative) ng/mL U Benzodiazepines Scrn Negative (Negative) ng/mL Urine Cocaine Scre en Negative (Negative) ng/mL U Marijuana (THC) Screen Negative (Negative) ng/mL Ethyl Alcohol (0-10) mg/dL Discharge Plan Discharge Patient Disposition: Home Clinical Impression: Pseudoseizure Condition: Stable Prescriptions: No Action eszopiclone [Lunesta] 3 mg tablet 3 mg PO .prn RF: 0 multivitamin Tablet 1 tab PO DAILY RF: 0 buspirone [BuSpar] 5 mg Tablet 5 mg PO TID RF: 0 atorvastatin 10 mg tablet 10 mg PO QAM RF: 0 citalopram [Celexa] 10 mg Tablet 10 mg PO DAILY RF: 0 tramadol 50 mg tablet 50 mg PO Q6H PRN (Reason: Pain) RF: 0 verapamil 120 mg Tablet 120 mg PO BID RF: 0 diphenhydramine HCl [Benadryl] 25 mg Capsule 25 - 50 mg PO PRN RF: 0 esomeprazole magnesium [Nexium] 40 mg Capsule,Delayed Release(Dr/Ec) 40 mg PO DAILY RF: 0 ropinirole 0.5 mg tablet 0.5 mg PO BEDTIME RF: 0 montelukast [Singulair] 10 mg Tablet 10 mg PO QPM RF: 0 budesonide-formoterol [Symbicort] 80-4.5 mcg/actuation Hfa Aerosol Inhaler 2 puff INHALATION BID RF: 0 melatonin 10 mg Tablet 10 mg PO PRN RF: 0 Emgality Pen 120 mg/mL pen injector 120 mg SUBCUT Q30D RF: 0 clonazepam 0.5 mg tablet 0.5 mg PO DAILY RF: 0 Discharge Orders: Discharge ED (Routine); Ordered 12/16/20 Ordered By: Taiwo Escobar Referrals: Marcelina Barajas DO [Primary Care Provider] - 4-7 days Patient Instructions: Recurrent Seizures Adult (ED) Activity Restrictions/Additional Instructions: Return for repeated episodes of seizure, language problems, weakness, vision problems, other concerning symptoms. Coding Level of Care Code ED At Risk Specialist for Bonita Fwsophie Exam Detailed
--- NOTE | 2020-12-16 00:24 | PC.NURSE ---
this nurse assumed care of patient from Sofy GILLIS at 0000
[2020-12-16 01:26] VITALS: BP 147/91; PULSE 81; RESP 18; O2SAT 98
== END 2020-12-16 01:26 | disposition home or self-care (01) ==
PROVIDERS: Emergency Provider Emergency Medicine; PCP Family Medicine
DX: G40.89 Other seizures (principal); Z86.711 Personal history of pulmonary embolism; Z87.891 Personal history of nicotine dependence
CPT/HCPCS: 80053; 80306; 80307; 81001; 83735; 84100; 85025; 93005; 96361; 96374; 96375; 99284; J1630; J2060; J7030

== ENCOUNTER → 2021-01-12 08:25 | Day surgery (SDC) | payer MEDICARE, MEDICAID, SELFPAY ==
[2021-01-12 09:25] LABS: Basophils % 0.5 %; Eosinophils # 0.1 10^3/uL (0.0-0.8); Eosinophils % 2.4 %; Hematocrit 39.3 % (37.0-47.0); Hemoglobin 12.7 g/dL (11.5-15.3); Lymphocytes % 23.7 %; Mean Corpuscular HGB Conc 32.3 g/dL (30.0-36.0); Mean Corpuscular Hemoglobin 30.2 pg (28.0-34.0); Mean Corpuscular Volume 93.3 fl (81-99); Mean Platelet Volume 9.5 fL (7.4-10.4); Monocytes # 0.4 10^3/uL (0.2-0.9); Monocytes % 9.5 %; Neutrophils # 2.61 10^3/uL (1.8-7.7); Neutrophils % 63.9 %; Nucleated Red Blood Cells % 0 %; Platelet Count 264 10^3/cmm (130-400); Red Blood Count 4.21 10^6/uL (4.1-5.3); Red Cell Distribution Width 11.9 % (12.1-15.1); White Blood Count 4.1 10^3/uL (4.0-10.0)
[2021-01-12 09:44] VITALS: BP 140/98; PULSE 84; RESP 18; TEMP 36.6; O2SAT 100
== END ==
PROVIDERS: PCP Family Medicine; Visit Provider Internal Medicine
DX: M81.8 Other osteoporosis without current pathological fracture (principal)
CPT/HCPCS: 36415; 85025; 96365; 96366; J1745; J7050

== ENCOUNTER → 2021-01-19 15:45 | Outpatient (BNVA) | payer MEDICARE, MEDICAID, SELFPAY | PROVIDERS: PCP Family Medicine; Visit Provider Nurse Practitioner | DX: J02.9 Acute pharyngitis, unspecified (principal) | CPT/HCPCS: 87426; 87880 ==

== ENCOUNTER 2021-01-30 13:32 | Emergency (ER) | payer MEDICARE, MEDICAID, SELFPAY ==
[2021-01-30] VITALS (7 sets, daily range): BP systolic 142–156; BP diastolic 78–103; PULSE 81–98; RESP 18–22; TEMP 36.5–36.9; O2SAT 96–100; BMI 25.0
--- NOTE | 2021-01-30 13:52 | XR_ITS ---
WS: [id number] XR chest 1V portable [id number] REASON FOR EXAM: cp and sob FINDINGS: Examination is unchanged compared to 12/08/2020. The heart and mediastinum are within normal limits. Calcified granulomatous disease is present in both hemithoraces. No active pulmonary parenchymal or p leural disease is noted. No significant abnormality bony thorax. XR/XR chest 1V portable [id number] IMPRESSION: Stable chest with no acute abnormality.
--- NOTE | 2021-01-30 13:53 | ED_ITS ---
Documented by User: JOSE Paez 01/30/21 16:55 HPI - Dizziness General: Chief Complaint: Dizziness Stated Complaint: dizzy X 2 WEEKS Time Seen by Provider: 01/30/21 13:47 History of Present Illness: HPI Narrative: Patient is a 45-year-old female comes to the ED with chest pain, shortness of breath and upper respiratory symptoms. Patient has a history of Crohn's and PEs. Patient reports that initial symptoms of cough and nasal drainage and congestion started approximately 2 weeks ago. She was checked for COVID-19 at her PCP office 2 weeks ago and it was negative. Her symptoms have continued to progress. She is now having some chest pain that is centrally located occurs whenever she coughs. Chest pain started approximately 2 days ago. She also reports having shortness of breath that developed over the last 4 to 5 days. Cough is dry nonproductive. She is also developing some diarrhea that started within the last 2 days. Denies any blood in the stool. She also reports some dizziness. Denies any fever, chills, abdominal pain, dysuria or hematuria. Associated symptoms: Reports chest pain, nausea and nasal congestion; Denies chills, headache(s), palpitations or vomiting Associated neuro symptoms: Deny numbness in extremities Review of Systems Const: Denies: fever(s), chills or fatigue Eyes: Denies: change in vision or eye discomfort ENMT: Reports: nasal discharge and nasal congestion; Denies: throat pain or odynophagia Card: Reports: chest pain; Denies: palpitations, edema, swelling of feet/ankles, dyspnea on exertion or orthopnea Resp: Reports: dyspnea and non-productive cough; Denies: productive cough GI: Reports: nausea; Denies: abdominal pain, vomiting, diarrhea, constipation or hematochezia : Denies: flank pain, dysuria or hematuria Musc: Denies: neck pain, back pain or extremity swelling Skin/Breast: Denies: rash or new lesions Neuro: Reports: dizziness; Denies: headache(s), numbness in extremities or weakness in extremities PFSH ED PFSH: Medical History Crohn's disease Degenerative disc disease Migraine Pulmonary embolism Rheumatoid arthritis Surgical History History of colonoscopy History of tubal ligation Social History Smoking and tobacco status: current every day smoker Alcohol intake: current Alcohol intake frequency: holidays/special occasions only Adopted: No Number of children: 3 service: No History of recent travel: No Female Reproductive History: Date of last menstrual period: 01/26/21 Physical Exam Const: COMMON NORMALS: no acute distress, patient oriented x3 and alert GENERAL APPEARANCE: cooperative and comfortable HENMT: COMMON NORMALS: normocephalic HEAD & SCALP: normocephalic MOUTH: Normal oral and palatal mucosa present THROAT: posterior oropharynx normal and uvula midline Eye: COMMON NORMALS: Equal, round and reactive pupils present PUPIL: Yes Equal, round and reactive pupils present Neck/C-Spine: COMMON NORMALS: supple GENERAL: Yes normal visual inspection Resp: COMMON NORMALS: normal respiratory effort, No retractions, No use of accessory muscles and clear to auscultation bilaterally EFFORT & INSPECTION: Yes able to speak in complete sentences, No tachypneic, No respiratory distress and No labored AUSCULTATION: clear to auscultation bilaterally and wheezes inspiratory wheezes (Mild) and throughout Cardio: COMMON NORMALS: regular rate, regular rhythm, S1 normal heart sound present, S2 normal heart sound present, No gallops present (Cardio), No clicks present (Cardio), No murmurs present (Cardio) and Peripheral pulses 2+ throughout RATE: regular rate RHYTHM: regular rhythm HEART SOUNDS: S1 normal heart sound present and S2 normal heart sound present PERIPHERAL PULSES: Peripheral pulses 2+ throughout GI: COMMON NORMALS: Normal to inspection, nondistended, normoactive bowel sounds present, Soft to palpation, non-tender and no masses PALPATION: Yes Soft to palpation : COMMON NORMALS: Yes no CVA tenderness BLADDER/KIDNEY EXAM: Yes no CVA tenderness Back/Pelvis: COMMON NORMALS: no CVA tenderness Extremity: COMMON NORMALS: normal to inspection Neuro: COMMON NORMALS: patient oriented x3 and moves all extremities SENSORIUM/ORIENTATION: Yes alert Skin: GENERAL SKIN EXAM: dry skin Course Vital Signs: Vital signs: Vital Signs Temperature 98.4 F 01/30/21 17:05 Pulse Rate 92 01/30/21 17:05 Respiratory Rate 18 01/30/21 17:05 Blood Pressure 142/78 01/30/21 17:05 Pulse Oximetry 97 01/30/21 17:05 MDM - Dizziness MDM Narrative: Medical decision making narrative: Patient is a 45-year-old female comes to the ED with upper respiratory symptoms for the past 2 weeks. She started developing some chest pain 2 days ago and shortness of breath approximately 4 days ago. Chest pain occurs with cough. Patient appears in no acute distress or pain. Her lungs show some mild inspiratory wheezing but no other findings. Rest of exam is benign. Vitals are stable with O2 sat 100% on room air. White blood cell count slightly elevated 11.7 but the rest of CBC and CMP were unremarkable. Chest x-ray showed no acute findings. D-dimer was normal, troponin negative. EKG showed no acute CT findings. Patient was given a DuoNeb breathing treatment while here in the ED. Patient diagnosed with bronchitis and noncardiac chest pain. She was discharged home with a prescription for Z-Patrice, Medrol Dosepak, Zofran and Tessalon Perles. Return to ED precautions given. Follow-up with PCP in 7 to 10 days for reevaluation. Patient understood agree with plan. Lab Data: Attestation: I reviewed the patient's lab results. Labs: Lab Results 01/30/21 01/30/21 01/30/21 14:05 14:05 15:09 WBC 11.7 10^3/uL H 10 ^3/uL (4.0-10.0) RBC 4.37 10^6/uL 10^6 /uL (4.1-5.3) Hgb 13.3 g/dL g/dL (11.5-15.3) Hct 39.5 % % (37.0-47.0) MCV 90.4 fl fl (81-99) MCH 30.4 pg pg (28.0-34.0) MCHC 33.7 g/dL g/dL (30.0-36.0) RDW 11.8 % L % (12.1-15.1) Plt Count 311 10^3/cmm 10^3 /cmm (130-400) MPV 9.8 fL fL (7.4-10.4) Neut % (Auto) 72.4 % % Lymph % (Auto) 19.4 % % Larue % (Auto) 7.5 % % Eos % (Auto) 0.2 % % Baso % (Auto) 0.2 % % Neut # (Auto) 8.45 10^3/uL H 10 ^3/uL (1.8-7.7) Lymph # (Auto) 2.3 10^3/uL 10^3/ uL (0.8-4.8) Larue # (Auto) 0.9 10^3/uL 10^3/ uL (0.2-0.9) Eos # (Auto) 0.0 10^3/uL 10^3/ uL (0.0-0.8) Baso # (Auto) 0.0 10^3/uL 10^3/ uL (0.0-0.1) Nucleated RBC % (a uto) 0 % % Nucleated RBCs # 0.0 /100WBC /100W BC D-Dimer Sodium Potassium Chloride Carbon Dioxide Anion Gap BUN Creatinine GFR Calculation Glucose Calculated Osmolal ity Calcium Total Bilirubin AST ALT Alkaline Phosphata se Troponin T Baselin e Total Protein Albumin Globulin Lipase HCG, Qual Urine Color Straw (Yellow) Urine Appearance Hazy A (CLEAR) Urine pH 7 (5-7) Ur Specific Gravit y 1.010 (1.005-1.030) Urine Protein Neg (Negative) Urine Glucose (UA) Norm (Normal) Urine Ketones Negative (Negative) Urine Blood Neg (Negative) Urine Nitrate Negative (Negative) Urine Bilirubin Neg (Negative) Urine Urobilinogen Norm mg/dL mg/dL (Negative) Ur Leukocyte Denise ase 2+ H (Negative) Urine RBC Not Reportable Urine WBC 10-15 /hpf H /hpf (0-5) Ur Squamous Epith Cells 5-10 /hpf H /hpf (0-5) Amorphous Sediment Not Reportable Urine Bacteria 1+ /hpf H /hpf (NONE) SARS-CoV-2 Ag (Rap id) Negative (Negative) 01/30/21 01/30/21 01/30/21 15:09 15:09 15:09 WBC RBC Hgb Hct MCV MCH MCHC RDW Plt Count MPV Neut % (Auto) Lymph % (Auto) Larue % (Auto) Eos % (Auto) Baso % (Auto) Neut # (Auto) Lymph # (Auto) Larue # (Auto) Eos # (Auto) Baso # (Auto) Nucleated RBC % (a uto) Nucleated RBCs # D-Dimer <= 0.27 ug/mIFEU ug/mIFEU (0-0.59) Sodium 137 mmol/L mmol/L (136-145) Potassium 3.9 mmol/L mmol/L (3.5-5.1) Chloride 105 mmol/L mmol/L (98-107) Carbon Dioxide 21 mmol/L L mmol/ L (22-29) Anion Gap 14.9 (5-19) BUN 12 mg/dL mg/dL (6-20) Creatinine 0.5 mg/dL mg/dL (0.5-0.9) GFR Calculation 134.0 mL/min H mL /min (90-130) Glucose 100 mg/dL mg/dL (65-115) Calculated Osmolal ity 284 mOsm/kg L mOs m/kg (285-295) Calcium 9.7 mg/dL mg/dL (8.5-10.5) Total Bilirubin 0.2 mg/dL mg/dL (0.15-1.2) AST 28 U/L U/L (0-32) ALT 49 U/L H U/L (0-33) Alkaline Phosphata se 129 IU/L H IU/L (35-105) Troponin T Baselin e Total Protein 8.2 g/dL g/dL (6.6-8.7) Albumin 4.2 g/dL g/dL (3.5-5.2) Globulin 4.0 g/dL g/dL (1.3-4.6) Lipase 61 U/L H U/L (13-60) HCG, Qual Negative (Negative) Urine Color Urine Appearance Urine pH Ur Specific Gravit y Urine Protein Urine Glucose (UA) Urine Ketones Urine Blood Urine Nitrate Urine Bilirubin Urine Urobilinogen Ur Leukocyte Denise ase Urine RBC Urine WBC Ur Squamous Epith Cells Amorphous Sediment Urine Bacteria SARS-CoV-2 Ag (Rap id) 01/30/21 15:09 WBC RBC Hgb Hct MCV MCH MCHC RDW Plt Count MPV Neut % (Auto) Lymph % (Auto) Larue % (Auto) Eos % (Auto) Baso % (Auto) Neut # (Auto) Lymph # (Auto) Larue # (Auto) Eos # (Auto) Baso # (Auto) Nucleated RBC % (a uto) Nucleated RBCs # D-Dimer Sodium Potassium Chloride Carbon Dioxide Anion Gap BUN Creatinine GFR Calculation Glucose Calculated Osmolal ity Calcium Total Bilirubin AST ALT Alkaline Phosphata se Troponin T Baselin e 6 ng/L ng/L (0-10) Total Protein Albumin Globulin Lipase HCG, Qual Urine Color Urine Appearance Urine pH Ur Specific Gravit y Urine Protein Urine Glucose (UA) Urine Ketones Urine Blood Urine Nitrate Urine Bilirubin Urine Urobilinogen Ur Leukocyte Denise ase Urine RBC Urine WBC Ur Squamous Epith Cells Amorphous Sediment Urine Bacteria SARS-CoV-2 Ag (Rap id) Imaging Data^: CXR: Attestation: I personally reviewed and interpreted this imaging study as follows: Radiologist's impression: [address] [address] XRay Report Signed Patient: Angie Schultz Unit #: [id number] : 1975 Age/Sex: 45 / F ADM Date: 01/30/21 Loc: ER Room/Bed: Attending Dr: Ordering Provider/Ordering MD: Tariq Benitez Date of Service: 01/30/21 Procedure(s): XR chest 1V portable [id number] Accession Number(s): [id number] Report Number: [id number] WS: [id number] XR chest 1V portable [id number] REASON FOR EXAM: cp and sob FINDINGS: Examination is unchanged compared to 12/08/2020. The heart and mediastinum are within normal limits. Calcified granulomatous disease is present in both hemithoraces. No active pulmonary parenchymal or pleural disease is noted. No significant abnormality bony thorax. XR/XR chest 1V portable [id number] IMPRESSION: Stable chest with no acute abnormality. Dictated By: Devaughn Jasso Jr, MD Signed By: Devaughn Jasso Jr, MD Signed Date/Time: 01/30/21 140 DD/ 1402 EKG Data^: EKG 1: Attestation: I personally reviewed and interpreted this EKG as follows: EKG interpretation date: 01/30/21 Interpretation: Normal sinus rhythm, no ST segment elevation or depression seen. Discharge Plan Discharge Patient Disposition: Home Clinical Impression: Bronchitis, Non-cardiac chest pain Condition: Stable Prescriptions: New Medrol (Patrice) 4 mg tablets,dose pack See Rx Instructions .ROUTE .COMPLEX Qty: 21 RF: 0 azithromycin 250 mg tablet See Rx Instructions .ROUTE .COMPLEX Qty: 6 RF: 0 Tessalon Perles 100 mg capsule 100 mg PO Q6H PRN (Reason: cough) Qty: 20 RF: 0 Zofran 4 mg tablet 4 mg PO Q8H PRN (Reason: nausea and vomiting) Qty: 20 RF: 0 No Action multivitamin Tablet 1 tab PO DAILY RF: 0 buspirone [BuSpar] 5 mg Tablet 5 mg PO TID RF: 0 atorvastatin 10 mg tablet 10 mg PO QAM RF: 0 citalopram [Celexa] 10 mg Tablet 10 mg PO DAILY RF: 0 tramadol 50 mg tablet 50 mg PO Q6H PRN (Reason: Pain) RF: 0 verapamil 120 mg Tablet 120 mg PO BID RF: 0 diphenhydramine HCl [Benadryl] 25 mg Capsule 25 - 50 mg PO PRN RF: 0 esomeprazole magnesium [Nexium] 40 mg Capsule,Delayed Release(Dr/Ec) 40 mg PO DAILY RF: 0 ropinirole 0.5 mg tablet 0.5 mg PO BEDTIME RF: 0 montelukast [Singulair] 10 mg Tablet 10 mg PO QPM RF: 0 budesonide-formoterol [Symbicort] 80-4.5 mcg/actuation Hfa Aerosol Inhaler 2 puff INHALATION BID RF: 0 melatonin 10 mg Tablet 10 mg PO PRN RF: 0 Emgality Pen 120 mg/mL pen injector 120 mg SUBCUT Q30D RF: 0 clonazepam 0.5 mg tablet 0.5 mg PO DAILY RF: 0 Discharge Orders: Discharge ED (Routine); Ordered 01/30/21 Ordered By: Tariq Benitez Referrals: Marcelina Barajas DO [Primary Care Provider] - Discharge Diet: Regular Discharge Activity: Resume usual activity Patient Instructions: Acute Bronchitis (ED), Noncardiac Chest Pain (ED) Activity Restrictions/Additional Instructions: Follow-up with medical provider as directed. Take medications as prescribed. Return to the ER or your medical provider if condition worsens. Please read and understand discharge instructions. Thank you for choosing [facility] for your healthcare needs today. Please realize this is an emergency room and that we are providing you with a medical screening exam and this may not be complete and all inclusive of all the testing and or work up that you may need to determine your ailment or severity of your illness. It is very important that you follow up as instructed or that you return to the Emergency Department should you have concerns or if your condition changes or worsens in any way. 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 Comprehensive Documented by User: Rudy Gibbs MD 02/01/21 17:32 HPI - Dizziness General: Chief Complaint: Dizziness Stated Complaint: dizzy X 2 WEEKS Time Seen by Provider: 01/30/21 13:47 PFS ED PFSH: Medical History Crohn's disease Degenerative disc disease Migraine Pulmonary embolism Rheumatoid arthritis Surgical History History of colonoscopy History of tubal ligation Social History Smoking and tobacco status: current every day smoker Alcohol intake: current Alcohol intake frequency: holidays/special occasions only Adopted: No Number of children: 3 service: No History of recent travel: No Course Vital Signs: Vital signs: Vital Signs Temperature 98.4 F 01/30/21 17:05 Pulse Rate 92 01/30/21 17:05 Respiratory Rate 18 01/30/21 17:05 Blood Pressure 142/78 01/30/21 17:05 Pulse Oximetry 97 01/30/21 17:05 MDM - Dizziness MDM Narrative: Medical decision making narrative: Patient discussed with JOSE Paez. Low risk by heart score. Rudy Gibbs MD Emergency Medicine Lab Data: Labs: Lab Results 01/30/21 01/30/21 01/30/21 14:05 14:05 15:09 WBC 11.7 10^3/uL H 10 ^3/uL (4.0-10.0) RBC 4.37 10^6/uL 10^6 /uL (4.1-5.3) Hgb 13.3 g/dL g/dL (11.5-15.3) Hct 39.5 % % (37.0-47.0) MCV 90.4 fl fl (81-99) MCH 30.4 pg pg (28.0-34.0) MCHC 33.7 g/dL g/dL (30.0-36.0) RDW 11.8 % L % (12.1-15.1) Plt Count 311 10^3/cmm 10^3 /cmm (130-400) MPV 9.8 fL fL (7.4-10.4) Neut % (Auto) 72.4 % % Lymph % (Auto) 19.4 % % Larue % (Auto) 7.5 % % Eos % (Auto) 0.2 % % Baso % (Auto) 0.2 % % Neut # (Auto) 8.45 10^3/uL H 10 ^3/uL (1.8-7.7) Lymph # (Auto) 2.3 10^3/uL 10^3/ uL (0.8-4.8) Larue # (Auto) 0.9 10^3/uL 10^3/ uL (0.2-0.9) Eos # (Auto) 0.0 10^3/uL 10^3/ uL (0.0-0.8) Baso # (Auto) 0.0 10^3/uL 10^3/ uL (0.0-0.1) Nucleated RBC % (a uto) 0 % % Nucleated RBCs # 0.0 /100WBC /100W BC D-Dimer Sodium Potassium Chloride Carbon Dioxide Anion Gap BUN Creatinine GFR Calculation Glucose Calculated Osmolal ity Calcium Total Bilirubin AST ALT Alkaline Phosphata se Troponin T Baselin e Total Protein Albumin Globulin Lipase HCG, Qual Urine Color Straw (Yellow) Urine Appearance Hazy A (CLEAR) Urine pH 7 (5-7) Ur Specific Gravit y 1.010 (1.005-1.030) Urine Protein Neg (Negative) Urine Glucose (UA) Norm (Normal) Urine Ketones Negative (Negative) Urine Blood Neg (Negative) Urine Nitrate Negative (Negative) Urine Bilirubin Neg (Negative) Urine Urobilinogen Norm mg/dL mg/dL (Negative) Ur Leukocyte Denise ase 2+ H (Negative) Urine RBC Not Reportable Urine WBC 10-15 /hpf H /hpf (0-5) Ur Squamous Epith Cells 5-10 /hpf H /hpf (0-5) Amorphous Sediment Not Reportable Urine Bacteria 1+ /hpf H /hpf (NONE) SARS-CoV-2 Ag (Rap id) Negative (Negative) 01/30/21 01/30/21 01/30/21 15:09 15:09 15:09 WBC RBC Hgb Hct MCV MCH MCHC RDW Plt Count MPV Neut % (Auto) Lymph % (Auto) Larue % (Auto) Eos % (Auto) Baso % (Auto) Neut # (Auto) Lymph # (Auto) Larue # (Auto) Eos # (Auto) Baso # (Auto) Nucleated RBC % (a uto) Nucleated RBCs # D-Dimer <= 0.27 ug/mIFEU ug/mIFEU (0-0.59) Sodium 137 mmol/L mmol/L (136-145) Potassium 3.9 mmol/L mmol/L (3.5-5.1) Chloride 105 mmol/L mmol/L (98-107) Carbon Dioxide 21 mmol/L L mmol/ L (22-29) Anion Gap 14.9 (5-19) BUN 12 mg/dL mg/dL (6-20) Creatinine 0.5 mg/dL mg/dL (0.5-0.9) GFR Calculation 134.0 mL/min H mL /min (90-130) Glucose 100 mg/dL mg/dL (65-115) Calculated Osmolal ity 284 mOsm/kg L mOs m/kg (285-295) Calcium 9.7 mg/dL mg/dL (8.5-10.5) Total Bilirubin 0.2 mg/dL mg/dL (0.15-1.2) AST 28 U/L U/L (0-32) ALT 49 U/L H U/L (0-33) Alkaline Phosphata se 129 IU/L H IU/L (35-105) Troponin T Baselin e Total Protein 8.2 g/dL g/dL (6.6-8.7) Albumin 4.2 g/dL g/dL (3.5-5.2) Globulin 4.0 g/dL g/dL (1.3-4.6) Lipase 61 U/L H U/L (13-60) HCG, Qual Negative (Negative) Urine Color Urine Appearance Urine pH Ur Specific Gravit y Urine Protein Urine Glucose (UA) Urine Ketones Urine Blood Urine Nitrate Urine Bilirubin Urine Urobilinogen Ur Leukocyte Denise ase Urine RBC Urine WBC Ur Squamous Epith Cells Amorphous Sediment Urine Bacteria SARS-CoV-2 Ag (Rap id) 01/30/21 15:09 WBC RBC Hgb Hct MCV MCH MCHC RDW Plt Count MPV Neut % (Auto) Lymph % (Auto) Larue % (Auto) Eos % (Auto) Baso % (Auto) Neut # (Auto) Lymph # (Auto) Larue # (Auto) Eos # (Auto) Baso # (Auto) Nucleated RBC % (a uto) Nucleated RBCs # D-Dimer Sodium Potassium Chloride Carbon Dioxide Anion Gap BUN Creatinine GFR Calculation Glucose Calculated Osmolal ity Calcium Total Bilirubin AST ALT Alkaline Phosphata se Troponin T Baselin e 6 ng/L ng/L (0-10) Total Protein Albumin Globulin Lipase HCG, Qual Urine Color Urine Appearance Urine pH Ur Specific Gravit y Urine Protein Urine Glucose (UA) Urine Ketones Urine Blood Urine Nitrate Urine Bilirubin Urine Urobilinogen Ur Leukocyte Denise ase Urine RBC Urine WBC Ur Squamous Epith Cells Amorphous Sediment Urine Bacteria SARS-CoV-2 Ag (Rap id) Discharge Plan Discharge Patient Disposition: Home Clinical Impression: Bronchitis, Non-cardiac chest pain Condition: Stable Prescriptions: New Medrol (Patrice) 4 mg tablets,dose pack See Rx Instructions .ROUTE .COMPLEX Qty: 21 RF: 0 azithromycin 250 mg tablet See Rx Instructions .ROUTE .COMPLEX Qty: 6 RF: 0 Tessalon Perles 100 mg capsule 100 mg PO Q6H PRN (Reason: cough) Qty: 20 RF: 0 Zofran 4 mg tablet 4 mg PO Q8H PRN (Reason: nausea and vomiting) Qty: 20 RF: 0 No Action multivitamin Tablet 1 tab PO DAILY RF: 0 buspirone [BuSpar] 5 mg Tablet 5 mg PO TID RF: 0 atorvastatin 10 mg tablet 10 mg PO QAM RF: 0 citalopram [Celexa] 10 mg Tablet 10 mg PO DAILY RF: 0 tramadol 50 mg tablet 50 mg PO Q6H PRN (Reason: Pain) RF: 0 verapamil 120 mg Tablet 120 mg PO BID RF: 0 diphenhydramine HCl [Benadryl] 25 mg Capsule 25 - 50 mg PO PRN RF: 0 esomeprazole magnesium [Nexium] 40 mg Capsule,Delayed Release(Dr/Ec) 40 mg PO DAILY RF: 0 ropinirole 0.5 mg tablet 0.5 mg PO BEDTIME RF: 0 montelukast [Singulair] 10 mg Tablet 10 mg PO QPM RF: 0 budesonide-formoterol [Symbicort] 80-4.5 mcg/actuation Hfa Aerosol Inhaler 2 puff INHALATION BID RF: 0 melatonin 10 mg Tablet 10 mg PO PRN RF: 0 Emgality Pen 120 mg/mL pen injector 120 mg SUBCUT Q30D RF: 0 clonazepam 0.5 mg tablet 0.5 mg PO DAILY RF: 0 Discharge Orders: Discharge ED (Routine); Ordered 01/30/21 Ordered By: Tariq Benitez Referrals: Marcelina Barajas DO [Primary Care Provider] - Discharge Diet: Regular Discharge Activity: Resume usual activity Patient Instructions: Acute Bronchitis (ED), Noncardiac Chest Pain (ED) Activity Restrictions/Additional Instructions: Follow-up with medical provider as directed. Take medications as prescribed. Return to the ER or your medical provider if condition worsens. Please read and understand discharge instructions. Thank you for choosing [facility] for your healthcare needs today. Please realize this is an emergency room and that we are providing you with a medical screening exam and this may not be complete and all inclusive of all the testing and or work up that you may need to determine your ailment or severity of your illness. It is very important that you follow up as instructed or that you return to the Emergency Department should you have concerns or if your condition changes or worsens in any way. 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
--- NOTE | 2021-01-30 14:31 | PC.NURSE ---
Attempts are made x3 to start IV without success.
[2021-01-30 14:34] LABS: Charge for UA Resulting for Rev
[2021-01-30 15:07] LABS: Add Urine Microscopic? YES; Bilirubin Urine Neg (Negative); Blood Urine Neg (Negative); Glucose Urine UA Norm (Normal); Ketones Urine Negative (Negative); Leukocyte Esterase Urine 2+ (Negative); Nitrate Urine Negative (Negative); Protein Urine Neg (Negative); Urine Appearance Hazy (CLEAR); Urine Color Straw (Yellow); Urobilinogen Urine Norm (Negative); pH Urine 7 (5-7)
[2021-01-30 15:08] LABS: Add Urine Culture? No; Bacteria Urine 1+ /hpf
[2021-01-30 15:12] LABS: SARS Covid-2 Antigen Negative (Negative)
[2021-01-30] MEDS: aspirin 81 mg Chew Tablet 324 MG PO (15:27)
--- NOTE | 2021-01-30 15:34 | PC.NURSE ---
A total of 6 attempts are made my nursing staff to access IV without success. Eli notified.
[2021-01-30 15:39] LABS: Basophils % 0.2 %; Eosinophils % 0.2 %; Hematocrit 39.5 % (37.0-47.0); Hemoglobin 13.3 g/dL (11.5-15.3); Lymphocytes # 2.3 10^3/uL (0.8-4.8); Lymphocytes % 19.4 %; Mean Corpuscular HGB Conc 33.7 g/dL (30.0-36.0); Mean Corpuscular Hemoglobin 30.4 pg (28.0-34.0); Mean Corpuscular Volume 90.4 fl (81-99); Mean Platelet Volume 9.8 fL (7.4-10.4); Monocytes # 0.9 10^3/uL (0.2-0.9); Monocytes % 7.5 %; Neutrophils # 8.45 10^3/uL (1.8-7.7); Neutrophils % 72.4 %; Nucleated Red Blood Cells % 0 %; Platelet Count 311 10^3/cmm (130-400); Red Blood Count 4.37 10^6/uL (4.1-5.3); Red Cell Distribution Width 11.8 % (12.1-15.1); White Blood Count 11.7 10^3/uL (4.0-10.0)
[2021-01-30] MEDS: ondansetron 2 mg/ML SDV 2 mL 4 MG IM (15:41)
[2021-01-30 15:49] LABS: D Dimer <= 0.27 ug/mIFEU (0-0.59)
[2021-01-30 15:58] LABS: Alanine Aminotransferase 49 U/L (0-33); Albumin Level 4.2 g/dL (3.5-5.2); Alkaline Phosphatase 129 IU/L (35-105); Anion Gap 14.9 (5-19); Aspartate Amino Transferase 28 U/L (0-32); Blood Urea Nitrogen 12 mg/dL (6-20); Calcium 9.7 mg/dL (8.5-10.5); Carbon Dioxide 21 mmol/L (22-29); Chloride 105 mmol/L (98-107); Glucose 100 mg/dL (65-115); Lipase 61 U/L (13-60); Osmolality Calculated 284 mOsm/kg (285-295); Potassium 3.9 mmol/L (3.5-5.1); Sodium 137 mmol/L (136-145); Total Bilirubin 0.2 mg/dL (0.15-1.2); Total Protein 8.2 g/dL (6.6-8.7)
[2021-01-30 15:59] LABS: Troponin(5th) Baseline 6 ng/L (0-10)
[2021-01-30 16:14] LABS: HCG, Serum Qual Negative (Negative)
[2021-01-30] MEDS: ipratropium-albuterol 3 mL Neb 6 ML INHALATION (16:43)
== END 2021-01-30 17:08 | disposition home or self-care (01) ==
PROVIDERS: Emergency Provider Physician Assistant; PCP Family Medicine
DX: R07.89 Other chest pain (principal); J40 Bronchitis, not specified as acute or chronic; Z86.711 Personal history of pulmonary embolism; F17.210 Nicotine dependence, cigarettes, uncomplicated; Z20.822 Contact with and (suspected) exposure to COVID-19
CPT/HCPCS: 36415; 71045; 80053; 81001; 81003; 83690; 84484; 84703; 85025; 85378; 87040; 87426; 94640; 96372; 99284; J2405

== ENCOUNTER → 2021-03-09 10:11 | Day surgery (SDC) | payer MEDICARE, MEDICAID, SELFPAY ==
[2021-03-09 10:25] VITALS: BP 116/82; PULSE 88; RESP 20; TEMP 36.4; O2SAT 99; BMI 27.4
== END ==
PROVIDERS: PCP Family Medicine; Visit Provider Internal Medicine
DX: K50.90 Crohn's disease, unspecified, without complications (principal)
CPT/HCPCS: 96365; 96366; J1745; J7050

== ENCOUNTER 2021-03-13 08:48 | Emergency (ER) | payer MEDICARE, MEDICAID, SELFPAY ==
[2021-03-13 08:53] VITALS: BP 155/97; PULSE 79; RESP 18; TEMP 36.7; O2SAT 100; BMI 27.0
--- NOTE | 2021-03-13 08:57 | ED_ITS ---
Documented by User: JOSE Caba 03/13/21 10:49 HPI - Seizure General: Chief Complaint: Seizure Stated Complaint: SEIZURE Time Seen by Provider: 03/13/21 08:51 Source: patient and EMS Mode of arrival: EMS Limitations: no limitations History of Present Illness: HPI Narrative: Patient is a 46-year-old female who presents to ED today with a complaint of pseudoseizures. Patient states she was at work when she began feeling dizzy and experiencing visual changes. Patient states she gets these identical symptoms prior to a seizure. Patient states she had an extensive evaluation in [place] and was told she had pseudoseizures. She does have an appointment with Dr. Welch next month for further evaluation. Patient is not on any antielliptic medication. She states her seizures previously have been brought on by stress/anxiety. Patient states she had to seizures while at work both lasting approximately 1 to 2 minutes. Patient did not have any falls. No loss of urine/bowel. No tongue/lip biting. Patient states she currently has a headache and some mild visual changes which again she states is fairly normal for her following a seizure. MD complaint: seizure Onset (ago): hour(s) Description of Episode: loss of consciousness Duration of episode: 1 -: minutes(s) Witnessed: Yes - by Bystander (coworker) Trauma: No Seizure History: Yes Place: Work Possible Precipitating Event: none Associated symptoms: Deny chest pain, chills, confusion, fever(s), malaise or syncope Treatments prior to arrival: none Review of Systems Const: Denies: fever(s), chills, body aches, fatigue or malaise Eyes: Reports: change in vision; Denies: photophobia, eye discharge or seeing flashes Card: Denies: chest pain, palpitations, irregular heart rhythm, lig htheadedness, syncope or dyspnea on exertion Resp: Denies: dyspnea, productive cough or pain on inspiration GI: Denies: abdominal pain, nausea, vomiting, heartburn or diarrhea : Denies: flank pain or dysuria Musc: Denies: neck pain, back pain or joint pain Skin/Breast: Denies: rash Neuro: Reports: headache(s) and dizziness (resolved now); Denies: numbness in extremities, weakness in extremities, sensory changes, lack of coordination, difficulty walking, vertigo, confusion, behavioral changes, Slurred speech present or difficulty communicating thoughts PFSH ED PFSH: Medical History Crohn's disease Degenerative disc disease Migraine Pulmonary embolism Rheumatoid arthritis Surgical History History of colonoscopy History of tubal ligation Social History Smoking and tobacco status: current every day smoker Alcohol intake: current Alcohol intake frequency: holidays/special occasions only Adopted: No Number of children: 3 service: No History of recent travel: No Female Reproductive History: Date of last menstrual period: 01/26/21 Physical Exam Const: COMMON NORMALS: no acute distress, average body habitus, patient oriented x3, no limitations, healthy appearing, alert and well nourished GENERAL APPEARANCE: cooperative ORIENTATION/CONSCIOUSNESS: Yes awake, Yes oriented to person, Yes oriented to place and Yes oriented to time HENMT: COMMON NORMALS: normocephalic and atraumatic HEAD & SCALP: normocephalic and atraumatic Neck/C-Spine: COMMON NORMALS: full ROM, no lymphadenopathy, supple and no meningeal signs Chest: COMMONS NORMALS: normal inspection of the chest Resp: COMMON NORMALS: normal respiratory effort and clear to auscultation bilaterally AUSCULTATION: clear to auscultation bilaterally Cardio: COMMON NORMALS: regular rate and regular rhythm RATE: regular rate RHYTHM: regular rhythm GI: COMMON NORMALS: Normal to inspection, nondistended, normoactive bowel sounds present, Soft to palpation, non-tender, No hepatosplenomegaly present and no masses PALPATION: Yes Soft to palpation and Yes No hepatosplenomegaly present : COMMON NORMALS: Yes no CVA tenderness BLADDER/KIDNEY EXAM: Yes no CVA tenderness Back/Pelvis: COMMON NORMALS: no CVA tenderness and thoracic and lumbar spine normal to inspection Extremity: COMMON NORMALS: normal to inspection Neuro: NIKA COMA SCALE: document [facility] findings [place] coma scale eye opening: Spontaneous [place] coma scale verbal response: Orientated Nika coma scale motor response: Obey commands Nika coma scale total score: 15 COMMON NORMALS: patient oriented x3, CN's II-XII intact bilaterally, moves all extremities, no focal motor deficits and no sensory deficits noted SENSORIUM/ORIENTATION: Yes alert, Yes oriented to person, Yes oriented to place and Yes oriented to time MENINGEAL SIGNS: Yes no meningeal signs Skin: COMMON NORMALS: no rashes or lesions noted GENERAL SKIN EXAM: no rashes or lesions noted TRAUMA: no lacerations or abrasions Course Vital Signs: Vital signs: Vital Signs Temperature 98.1 F 03/13/21 08:53 Pulse Rate 79 03/13/21 08:53 Respiratory Rate 18 03/13/21 08:53 Blood Pressure 155/97 03/13/21 08:53 Pulse Oximetry 100 03/13/21 08:53 MDM - Seizure MDM Narrative: Medical decision making narrative: UA with hematuria but she states she is in perimenopause and has sporadic bleeding/currently bleeding. Has follow up soon with OBGYN. Blood work unremarkable. Vitals stable. No further seizure like activity. Complains of a CHAPA that she states is normal following these episodes. States in [place] they normally gave her Dilaudid. Told her I am not willing to give this medication for a post-ictal headache as there are no indications for such. Patient states she has an appointment with Dr. Welch next month for further evaluation. Return to ED precautions given. Lab Data: Labs: Lab Results 03/13/21 03/13/21 03/13/21 09:35 09:35 09:35 WBC 3.9 10^3/uL L 10^ 3/uL (4.0-10.0) RBC 4.37 10^6/uL 10^6 /uL (4.1-5.3) Hgb 13.3 g/dL g/dL (11.5-15.3) Hct 38.7 % % (37.0-47.0) MCV 88.6 fl fl (81-99) MCH 30.4 pg pg (28.0-34.0) MCHC 34.4 g/dL g/dL (30.0-36.0) RDW 11.7 % L % (12.1-15.1) Plt Count 292 10^3/cmm 10^3 /cmm (130-400) MPV 9.5 fL fL (7.4-10.4) Neut % (Auto) 53.2 % % Lymph % (Auto) 34.8 % % [place] % (Auto) 7.9 % % Eos % (Auto) 2.5 % % Baso % (Auto) 1.3 % % Neut # (Auto) 2.10 10^3/uL 10^3 /uL (1.8-7.7) Lymph # (Auto) 1.4 10^3/uL 10^3/ uL (0.8-4.8) [place] # (Auto) 0.3 10^3/uL 10^3/ uL (0.2-0.9) Eos # (Auto) 0.1 10^3/uL 10^3/ uL (0.0-0.8) Baso # (Auto) 0.1 10^3/uL 10^3/ uL (0.0-0.1) Nucleated RBC % (a uto) 0 % % Nucleated RBCs # 0.0 /100WBC /100W BC Sodium 137 mmol/L mmol/L (136-145) Potassium 4.3 mmol/L mmol/L (3.5-5.1) Chloride 104 mmol/L mmol/L (98-107) Carbon Dioxide 22 mmol/L mmol/L (22-29) Anion Gap 15.3 (5-19) BUN 13 mg/dL mg/dL (6-20) Creatinine 0.7 mg/dL mg/dL (0.5-0.9) GFR Calculation 90.5 mL/min mL/mi n (90-130) Glucose 83 mg/dL mg/dL (65-115) Calculated Osmolal ity 283 mOsm/kg L mOs m/kg (285-295) Calcium 8.4 mg/dL L mg/dL (8.5-10.5) Total Bilirubin 0.2 mg/dL mg/dL (0.15-1.2) AST 15 U/L U/L (0-32) ALT 13 U/L U/L (0-33) Alkaline Phosphata se 69 IU/L IU/L (35-105) Total Protein 7.4 g/dL g/dL (6.6-8.7) Albumin 3.6 g/dL g/dL (3.5-5.2) Globulin 3.8 g/dL g/dL (1.3-4.6) Urine Color Straw (Yellow) Urine Appearance Clear (CLEAR) Urine pH 7 (5-7) Ur Specific Gravit y 1.005 (1.005-1.030) Urine Protein Neg (Negative) Urine Glucose (UA) Norm (Normal) Urine Ketones Negative (Negative) Urine Blood 3+ H (Negative) Urine Nitrate Negative (Negative) Urine Bilirubin Neg (Negative) Urine Urobilinogen Norm mg/dL mg/dL (Negative) Ur Leukocyte Denise ase Negative (Negative) Urine RBC 0-4 /hpf H /hpf (0-2) Urine WBC 0-4 /hpf H /hpf (0-5) Ur Squamous Epith Cells 0-4 /hpf H /hpf (0-5) Amorphous Sediment Not Reportable Urine Bacteria 2+ /hpf H /hpf (NONE) Discharge Plan Discharge Patient Disposition: Home Clinical Impression: Pseudoseizure Condition: Stable Prescriptions: No Action ondansetron HCl [Zofran] 4 mg tablet 4 mg PO Q8H PRN (Reason: nausea and vomiting) Qty: 20 RF: 0 multivitamin Tablet 1 tab PO DAILY RF: 0 buspirone [BuSpar] 5 mg Tablet 5 mg PO TID RF: 0 atorvastatin 10 mg tablet 10 mg PO QAM RF: 0 citalopram [Celexa] 10 mg Tablet 10 mg PO DAILY RF: 0 tramadol 50 mg tablet 50 mg PO Q6H PRN (Reason: Pain) RF: 0 verapamil 120 mg Tablet 120 mg PO BID RF: 0 diphenhydramine HCl [Benadryl] 25 mg Capsule 25 - 50 mg PO PRN RF: 0 esomeprazole magnesium [Nexium] 40 mg Capsule,Delayed Release(Dr/Ec) 40 mg PO DAILY RF: 0 ropinirole 0.5 mg tablet 0.5 mg PO BEDTIME RF: 0 montelukast [Singulair] 10 mg Tablet 10 mg PO QPM RF: 0 budesonide-formoterol [Symbicort] 80-4.5 mcg/actuation Hfa Aerosol Inhaler 2 puff INHALATION BID RF: 0 melatonin 10 mg Tablet 10 mg PO PRN RF: 0 Emgality Pen 120 mg/mL pen injector 120 mg SUBCUT Q30D RF: 0 clonazepam 0.5 mg tablet 0.5 mg PO DAILY RF: 0 mirtazapine 30 mg tablet 30 mg PO BEDTIME RF: 0 Discharge Orders: Discharge ED (Routine); Ordered 03/13/21 Ordered By: Anita Kamara Referrals: Marcelina Barajas DO [Primary Care Provider] - Patient Instructions: Recurrent Seizures in Adults (ED) Activity Restrictions/Additional Instructions: As we discussed please keep your appointment with Dr. Welch next month for further evaluation of your seizure episodes. Coding Level of Care Code ED Head Of Business Development for Chg Fwd Exam Comprehensive Documented by User: Marek Dawson DO 03/14/21 09:09 HPI - Seizure General: Chief Complaint: Seizure Stated Complaint: SEIZURE Time Seen by Provider: 03/13/21 08:51 PFSH ED 2 PFSH: Medical History Crohn's disease Degenerative disc disease Migraine Pulmonary embolism Rheumatoid arthritis Surgical History History of colonoscopy History of tubal ligation Social History Smoking and tobacco status: current every day smoker Alcohol intake: current Alcohol intake frequency: holidays/special occasions only Adopted: No Number of children: 3 service: No History of recent travel: No Course Vital Signs: Vital signs: Vital Signs Temperature 98.1 F 03/13/21 08:53 Pulse Rate 79 03/13/21 08:53 Respiratory Rate 18 03/13/21 08:53 Blood Pressure 155/97 03/13/21 08:53 Pulse Oximetry 100 03/13/21 08:53 MDM - Seizure MDM Narrative: Medical decision making narrative: Chart reviewed and patient discussed with midlevel. Agree with assessment and plan. Lab Data: Labs: Lab Results 03/13/21 03/13/21 03/13/21 09:35 09:35 09:35 WBC 3.9 10^3/uL L 10^ 3/uL (4.0-10.0) RBC 4.37 10^6/uL 10^6 /uL (4.1-5.3) Hgb 13.3 g/dL g/dL (11.5-15.3) Hct 38.7 % % (37.0-47.0) MCV 88.6 fl fl (81-99) MCH 30.4 pg pg (28.0-34.0) MCHC 34.4 g/dL g/dL (30.0-36.0) RDW 11.7 % L % (12.1-15.1) Plt Count 292 10^3/cmm 10^3 /cmm (130-400) MPV 9.5 fL fL (7.4-10.4) Neut % (Auto) 53.2 % % Lymph % (Auto) 34.8 % % [place] % (Auto) 7.9 % % Eos % (Auto) 2.5 % % Baso % (Auto) 1.3 % % Neut # (Auto) 2.10 10^3/uL 10^3 /uL (1.8-7.7) Lymph # (Auto) 1.4 10^3/uL 10^3/ uL (0.8-4.8) [place] # (Auto) 0.3 10^3/uL 10^3/ uL (0.2-0.9) Eos # (Auto) 0.1 10^3/uL 10^3/ uL (0.0-0.8) Baso # (Auto) 0.1 10^3/uL 10^3/ uL (0.0-0.1) Nucleated RBC % (a uto) 0 % % Nucleated RBCs # 0.0 /100WBC /100W BC Sodium 137 mmol/L mmol/L (136-145) Potassium 4.3 mmol/L mmol/L (3.5-5.1) Chloride 104 mmol/L mmol/L (98-107) Carbon Dioxide 22 mmol/L mmol/L (22-29) Anion Gap 15.3 (5-19) BUN 13 mg/dL mg/dL (6-20) Creatinine 0.7 mg/dL mg/dL (0.5-0.9) GFR Calculation 90.5 mL/min mL/mi n (90-130) Glucose 83 mg/dL mg/dL (65-115) Calculated Osmolal ity 283 mOsm/kg L mOs m/kg (285-295) Calcium 8.4 mg/dL L mg/dL (8.5-10.5) Total Bilirubin 0.2 mg/dL mg/dL (0.15-1.2) AST 15 U/L U/L (0-32) ALT 13 U/L U/L (0-33) Alkaline Phosphata se 69 IU/L IU/L (35-105) Total Protein 7.4 g/dL g/dL (6.6-8.7) Albumin 3.6 g/dL g/dL (3.5-5.2) Globulin 3.8 g/dL g/dL (1.3-4.6) Urine Color Straw (Yellow) Urine Appearance Clear (CLEAR) Urine pH 7 (5-7) Ur Specific Gravit y 1.005 (1.005-1.030) Urine Protein Neg (Negative) Urine Glucose (UA) Norm (Normal) Urine Ketones Negative (Negative) Urine Blood 3+ H (Negative) Urine Nitrate Negative (Negative) Urine Bilirubin Neg (Negative) Urine Urobilinogen Norm mg/dL mg/dL (Negative) Ur Leukocyte Denise ase Negative (Negative) Urine RBC 0-4 /hpf H /hpf (0-2) Urine WBC 0-4 /hpf H /hpf (0-5) Ur Squamous Epith Cells 0-4 /hpf H /hpf (0-5) Amorphous Sediment Not Reportable Urine Bacteria 2+ /hpf H /hpf (NONE) Discharge Plan Discharge Patient Disposition: Home Clinical Impression: Pseudoseizure Condition: Stable Prescriptions: No Action ondansetron HCl [Zofran] 4 mg tablet 4 mg PO Q8H PRN (Reason: nausea and vomiting) Qty: 20 RF: 0 multivitamin Tablet 1 tab PO DAILY RF: 0 buspirone [BuSpar] 5 mg Tablet 5 mg PO TID RF: 0 atorvastatin 10 mg tablet 10 mg PO QAM RF: 0 citalopram [Celexa] 10 mg Tablet 10 mg PO DAILY RF: 0 tramadol 50 mg tablet 50 mg PO Q6H PRN (Reason: Pain) RF: 0 verapamil 120 mg Tablet 120 mg PO BID RF: 0 diphenhydramine HCl [Benadryl] 25 mg Capsule 25 - 50 mg PO PRN RF: 0 esomeprazole magnesium [Nexium] 40 mg Capsule,Delayed Release(Dr/Ec) 40 mg PO DAILY RF: 0 ropinirole 0.5 mg tablet 0.5 mg PO BEDTIME RF: 0 montelukast [Singulair] 10 mg Tablet 10 mg PO QPM RF: 0 budesonide-formoterol [Symbicort] 80-4.5 mcg/actuation Hfa Aerosol Inhaler 2 puff INHALATION BID RF: 0 melatonin 10 mg Tablet 10 mg PO PRN RF: 0 Emgality Pen 120 mg/mL pen injector 120 mg SUBCUT Q30D RF: 0 clonazepam 0.5 mg tablet 0.5 mg PO DAILY RF: 0 mirtazapine 30 mg tablet 30 mg PO BEDTIME RF: 0 Discharge Orders: Discharge ED (Routine); Ordered 03/13/21 Ordered By: Anita Kamara Referrals: Marcelina Barajas DO [Primary Care Provider] - Patient Instructions: Recurrent Seizures in Adults (ED) Activity Restrictions/Additional Instructions: As we discussed please keep your appointment with Dr. Welch next month for further evaluation of your seizure episodes. Coding Level of Care Code ED Head Of Business Development for Bonita Fwd Exam Comprehensive
[2021-03-13] MEDS: LORazepam 2 mg/mL INJ 1 mL 1 MG IVP (09:36)
[2021-03-13 09:55] LABS: Specific Gravity, Urine 1.005 (1.005-1.030); Urine Appearance Clear (CLEAR); Urine Color Straw (Yellow); pH Urine 7 (5-7)
[2021-03-13 09:56] LABS: Add Urine Culture? Yes; Add Urine Microscopic? YES; Bacteria Urine 2+ /hpf; Bilirubin Urine Neg (Negative); Blood Urine 3+ (Negative); Glucose Urine UA Norm (Normal); Ketones Urine Negative (Negative); Leukocyte Esterase Urine Negative (Negative); Nitrate Urine Negative (Negative); Protein Urine Neg (Negative); RBC Urine 0-4 /hpf (0-2); Squamous Epithelial Cell Urine 0-4 /hpf (0-5); Urobilinogen Urine Norm (Negative); WBC Urine 0-4 /hpf (0-5)
[2021-03-13] MEDS: ondansetron 2 mg/ML SDV 2 mL 4 MG IVP (10:10)
[2021-03-13] MEDS: diphenhydrAMINE 50 mg/mL SDV 1mL 25 MG IVP (10:10)
[2021-03-13 10:17] LABS: Alanine Aminotransferase 13 U/L (0-33); Albumin Level 3.6 g/dL (3.5-5.2); Alkaline Phosphatase 69 IU/L (35-105); Anion Gap 15.3 (5-19); Aspartate Amino Transferase 15 U/L (0-32); Basophils # 0.1 10^3/uL (0.0-0.1); Basophils % 1.3 %; Blood Urea Nitrogen 13 mg/dL (6-20); Calcium 8.4 mg/dL (8.5-10.5); Carbon Dioxide 22 mmol/L (22-29); Chloride 104 mmol/L (98-107); Eosinophils # 0.1 10^3/uL (0.0-0.8); Eosinophils % 2.5 %; Globulin 3.8 g/dL (1.3-4.6); Glomerular Filtration Rate 90.5 mL/min (90-130); Glucose 83 mg/dL (65-115); Hematocrit 38.7 % (37.0-47.0); Hemoglobin 13.3 g/dL (11.5-15.3); Lymphocytes # 1.4 10^3/uL (0.8-4.8); Lymphocytes % 34.8 %; Mean Corpuscular HGB Conc 34.4 g/dL (30.0-36.0); Mean Corpuscular Hemoglobin 30.4 pg (28.0-34.0); Mean Corpuscular Volume 88.6 fl (81-99); Mean Platelet Volume 9.5 fL (7.4-10.4); Monocytes # 0.3 10^3/uL (0.2-0.9); Monocytes % 7.9 %; Neutrophils % 53.2 %; Nucleated Red Blood Cells % 0 %; Osmolality Calculated 283 mOsm/kg (285-295); Platelet Count 292 10^3/cmm (130-400); Potassium 4.3 mmol/L (3.5-5.1); Red Blood Count 4.37 10^6/uL (4.1-5.3); Red Cell Distribution Width 11.7 % (12.1-15.1); Sodium 137 mmol/L (136-145); Total Bilirubin 0.2 mg/dL (0.15-1.2); Total Protein 7.4 g/dL (6.6-8.7); White Blood Count 3.9 10^3/uL (4.0-10.0)
== END 2021-03-13 10:36 | disposition home or self-care (01) ==
PROVIDERS: Emergency Provider Physician Assistant; PCP Family Medicine
DX: R56.9 Unspecified convulsions (principal); Z86.711 Personal history of pulmonary embolism; F17.210 Nicotine dependence, cigarettes, uncomplicated
CPT/HCPCS: 80053; 81001; 85025; 87077; 87086; 87186; 96374; 96375; 99283; J1200; J2060; J2405

== ENCOUNTER 2021-05-02 09:17 | Outpatient (CLI) | payer MEDICARE, MEDICAID, SELFPAY ==
--- NOTE | 2021-05-02 09:25 | XRR_ITS ---
PROCEDURE INFORMATION: Exam: XR Chest Exam date and time: 05/02/2021 9:25 AM Age: 46 years old Clinical indication: Cough; Patient HX: History of ovarian cancer; Additional info: Chronic cough TECHNIQUE: Imaging protocol: XR of the chest. Views: 2 views. Total images: 2 COMPARISON: CR XR chest 1V portable [id number] 01/30/2021 1:58 PM FINDINGS: Lungs: Unremarkable. No consolidation. Pleural spaces: Unremarkable. No pleural effusion. No pneumothorax. Heart/Mediastinum: Unremarkable. No cardiomegaly. Bones/joints: Unremarkable. XR/XR chest 2V* [id number] IMPRESSION: No acute findings.
== END 2021-05-02 09:18 | disposition home or self-care (01) ==
LOC: RAD 09:24
PROVIDERS: PCP Family Medicine; Visit Provider Family Medicine
DX: R05.9 Cough, unspecified (principal)
CPT/HCPCS: 71046

== ENCOUNTER → 2021-05-04 08:57 | Day surgery (SDC) | payer MEDICARE, MEDICAID, SELFPAY ==
[2021-05-04 09:29] VITALS: BMI 26.6
[2021-05-04 09:31] VITALS: BP 135/85; PULSE 82; RESP 18; TEMP 36.2; O2SAT 99
== END ==
PROVIDERS: PCP Family Medicine; Visit Provider Internal Medicine
DX: K50.90 Crohn's disease, unspecified, without complications (principal)
CPT/HCPCS: 96365; 96366; J1745; J7050

== ENCOUNTER → 2021-06-29 06:07 | Day surgery (SDC) | payer MEDICARE, MEDICAID, SELFPAY ==
[2021-06-29 06:10] VITALS: BP 139/84; PULSE 82; RESP 18; TEMP 36.2; O2SAT 99; BMI 28.3
== END ==
PROVIDERS: PCP Family Medicine; Visit Provider Internal Medicine
DX: K50.90 Crohn's disease, unspecified, without complications (principal)
CPT/HCPCS: 96365; 96366; J1745; J7050

== ENCOUNTER 2021-07-23 07:56 | Emergency (ER) | payer MEDICARE, MEDICAID, SELFPAY ==
--- NOTE | 2021-07-23 08:36 | W.ED.GENADLT ---
HPI - General Adult General: Chief complaint: General Medical Stated complaint: Tick bites Time Seen by Provider: 07/23/21 08:10 History of Present Illness: Patient is a 46-year-old female comes to the ED with tick bites. [place] james and when she came inside she noticed she had a bunch of small tick bites on her legs and abdomen. She removed all the embedded ticks last night. Today she has some body aches, nausea and malaise. Denies any fever or vomiting. Some of the tick bite areas are raised and red. Associated symptoms: Reports malaise and nausea; Deny chest pain, dyspnea, headache(s), rash, palpitations or vomiting Review of Systems Const: Reports: body aches and malaise; Denies: fever(s), chills or fatigue Eyes: Denies: change in vision or eye discomfort ENMT: Denies: throat pain, odynophagia, nasal discharge or nasal congestion Card: Denies: chest pain, palpitations, edema, swelling of feet/ankles, dyspnea on exertion or orthopnea Resp: Denies: dyspnea, productive cough or non-productive cough GI: Reports: nausea; Denies: abdominal pain, vomiting, diarrhea, constipation or hematochezia : Denies: flank pain, dysuria or hematuria Musc: Denies: neck pain, back pain or extremity swelling Skin/Breast: Reports: other (Multiple tick bites on legs and abdomen.); Denies: rash or new lesions Neuro: Denies: headache(s), numbness in extremities or weakness in extremities PFS ED PFSH: Medical History Crohn's disease Degenerative disc disease Migraine Pulmonary embolism Rheumatoid arthritis Surgical History History of colonoscopy History of tubal ligation Social History Smoking and tobacco status: current every day smoker Alcohol intake: current Alcohol intake frequency: holidays/special occasions only Adopted: No Number of children: 3 service: No History of recent travel: No Female Reproductive History: Date of last menstrual period: 01/26/21 Physical Exam Const: COMMON NORMALS: no acute distress, patient oriented x3 and alert GENERAL APPEARANCE: cooperative and comfortable HENMT: COMMON NORMALS: normocephalic HEAD & SCALP: normocephalic MOUTH: Normal oral and palatal mucosa present THROAT: posterior oropharynx normal and uvula midline Neck/C-Spine: COMMON NORMALS: supple GENERAL: Yes normal visual inspection Resp: COMMON NORMALS: normal respiratory effort, No retractions, No use of accessory muscles and clear to auscultation bilaterally AUSCULTATION: clear to auscultation bilaterally Cardio: COMMON NORMALS: regular rate, regular rhythm, S1 normal heart sound present, S2 normal heart sound present, No gallops present (Cardio), No clicks present (Cardio), No murmurs present (Cardio) and Peripheral pulses 2+ throughout RATE: regular rate RHYTHM: regular rhythm HEART SOUNDS: S1 normal heart sound present and S2 normal heart sound present PERIPHERAL PULSES: Peripheral pulses 2+ throughout GI: COMMON NORMALS: Normal to inspection, nondistended, normoactive bowel sounds present, Soft to palpation, non-tender and no masses PALPATION: Yes Soft to palpation : COMMON NORMALS: Yes no CVA tenderness BLADDER/KIDNEY EXAM: Yes no CVA tenderness Back/Pelvis: COMMON NORMALS: no CVA tenderness Extremity: COMMON NORMALS: normal to inspection Neuro: COMMON NORMALS: patient oriented x3 and moves all extremities SENSORIUM/ORIENTATION: Yes alert Skin: NARRATIVE SKIN EXAM: Patient has multiple tick bites on lower extremities bilaterally and torso. All tick bite areas are, circular and raised. One tick bite in particular on right leg near medial aspect of knee had some characteristics of erythema migrans. No embedded tick seen. [facility] - General Adult Medical Decision Making Patient is a 46-year-old female who comes to the ED after having multiple tick bites yesterday. She removed all the embedded ticks. Today she is complained of having a little bit of nausea, body aches and generalized malaise. Denies any emesis or fevers. Vitals are stable. Patient appears nontoxic and in no acute distress or pain. Tick bite areas are erythemic and raised. She has multiple bites on bilateral lower extremities and torso. 1 tick bite area on right leg had some characteristics of erythema migrans. Tick panel pending. Patient is allergic to Doxy and Cipro and was discharged home on amoxicillin. She was told to follow-up with her primary care doctor in the next 7 to 10 days for reevaluation. Return to ED precautions given. Patient understood and agreed with plan. Discharge Plan Discharge Patient Disposition: Home Clinical Impression: Tick bite Qualifiers: Encounter type: initial encounter Site of tick bite: unspecified site Qualified Code(s): W57.XXXA - Bitten or stung by nonvenomous insect and other nonvenomous arthropods, initial encounter Condition: Stable Prescriptions: New amoxicillin 500 mg capsule 500 mg PO BID 10 Days Qty: 20 0RF No Action ondansetron HCl [Zofran] 4 mg tablet 4 mg PO Q8H PRN (Reason: nausea and vomiting) Qty: 20 0RF eszopiclone 3 mg tablet 3 mg PO BEDTIME 0RF multivitamin Tablet 1 tab PO DAILY 0RF buspirone [BuSpar] 5 mg Tablet 5 mg PO TID 0RF atorvastatin 10 mg tablet 10 mg PO QAM 0RF citalopram [Celexa] 10 mg Tablet 10 mg PO DAILY 0RF diphenhydramine HCl [Benadryl] 25 mg Capsule 25 - 50 mg PO PRN 0RF esomeprazole magnesium [Nexium] 40 mg Capsule,Delayed Release(Dr/Ec) 40 mg PO DAILY 0RF ropinirole 0.5 mg tablet 0.5 mg PO BEDTIME 0RF montelukast [Singulair] 10 mg Tablet 10 mg PO QPM 0RF budesonide-formoterol [Symbicort] 80-4.5 mcg/actuation Hfa Aerosol Inhaler 2 puff INHALATION BID 0RF melatonin 10 mg Tablet 10 mg PO PRN 0RF Emgality Pen 120 mg/mL pen injector 120 mg SUBCUT Q30D 0RF clonazepam 0.5 mg tablet 0.5 mg PO DAILY 0RF acetaminophen-codeine 300-30 mg tablet 300 tab PO TID 0RF Discharge Orders: Discharge ED (Routine); Ordered 07/23/21 Ordered By: Tariq Benitez Referrals: Marcelina Barajas DO [Primary Care Provider] - Discharge Diet: Regular Discharge Activity: Resume usual activity Patient Instructions: Tick Bite (ED) Activity Restrictions/Additional Instructions: Follow-up with medical provider as directed in the next 7 to 10 days for reevaluation. Take medications as prescribed. Return to the ER or your medical provider if condition worsens. Please read and understand discharge instructions. Thank you for choosing [facility] for your healthcare needs today. Please realize this is an emergency room and that we are providing you with a medical screening exam and this may not be complete and all inclusive of all the testing and or work up that you may need to determine your ailment or severity of your illness. It is very important that you follow up as instructed or that you return to the Emergency Department should you have concerns or if your condition changes or worsens in any way. Stand Alone Forms: Work/School Release Coding Level of Care Code ED Weigher And Grader for Bonita Fwd Exam Comprehensive
[2021-07-23] MEDS: ondansetron 4 MG Tablet PO (09:31)
[2021-07-24 15:23] LABS: Lyme AB Screen <0.90 index
[2021-07-27 16:42] LABS: RMSF IGG NOT DETECTED; RMSF IGM NOT DETECTED
[2021-07-27 17:22] LABS: E. Chaffeensis AB IGG <1:64; E. Chaffeensis AB IGM <1:20
== END 2021-07-23 09:32 | disposition home or self-care (01) ==
PROVIDERS: Emergency Provider Physician Assistant; PCP Family Medicine
DX: S80.862A Insect bite (nonvenomous), left lower leg, initial encounter (principal); S80.861A Insect bite (nonvenomous), right lower leg, initial encounter; S30.861A Insect bite (nonvenomous) of abdominal wall, initial encounter; W57.XXXA Bitten or stung by nonvenomous insect and other nonvenomous arthropods, initial encounter; Z86.711 Personal history of pulmonary embolism; F17.210 Nicotine dependence, cigarettes, uncomplicated
CPT/HCPCS: 86618; 86666; 86757; 99283; Q0162

== ENCOUNTER → 2021-08-31 08:14 | Day surgery (SDC) | payer MEDICARE, MEDICAID, SELFPAY ==
[2021-08-31 08:35] VITALS: BP 113/79; PULSE 91; RESP 18; TEMP 36.5; O2SAT 99
== END ==
PROVIDERS: PCP Family Medicine; Visit Provider Internal Medicine
DX: M81.8 Other osteoporosis without current pathological fracture (principal)
CPT/HCPCS: 96365; 96366; J1745; J7050

== ENCOUNTER 2021-09-08 13:08 | Emergency (ER) | payer MEDICARE, MEDICAID, SELFPAY ==
[2021-09-08 13:22] VITALS: BP 129/78; PULSE 119; RESP 22; TEMP 36.8; O2SAT 100
[2021-09-08 13:50] LABS: Blood Urine 2+ (Negative); Glucose Urine UA Norm (Normal); Ketones Urine Negative (Negative); Nitrate Urine Negative (Negative); Protein Urine Trace (Negative); Urine Appearance SL Hazy (CLEAR); Urine Color Yellow (Yellow); pH Urine 6 (5-7)
[2021-09-08 13:51] LABS: Add Urine Microscopic? YES; Bilirubin Urine Neg (Negative); Leukocyte Esterase Urine 1+ (Negative); Squamous Epithelial Cell Urine 0-4 /hpf (0-5); Urobilinogen Urine Norm (Negative); WBC Urine 15-25 /hpf (0-5)
[2021-09-08 13:53] LABS: Add Urine Culture? Yes; Bacteria Urine 2+ /hpf
--- NOTE | 2021-09-08 14:27 | CTR_ITS ---
PROCEDURE INFORMATION: Exam: CT Abdomen And Pelvis Without Contrast Exam date and time: 09/08/2021 2:39 PM Age: 46 years old Clinical indication: Abdominal pain; Left lower quadrant (llq); Prior surgery; Surgery date: 6+ months; Surgery type: Tubal; Patient HX: C/O L flank/groin pain w hematuria since yesterday; Additional info: Left flank peck, hematuria, UTI TECHNIQUE: Imaging protocol: Computed tomography of the abdomen and pelvis without contrast. Radiation optimization: All CT scans at this facility use at least one of these dose optimization techniques: automated exposure control; mA and/or kV adjustment per patient size (includes targeted exams where dose is matched to clinical indication); or iterative reconstruction. COMPARISON: CT abdomen pelvis w con* [id number] 06/23/2020 5:49 PM RADIATION DOSE METRICS: Total DLP (mGy-cm): 1040.37 FINDINGS: Lungs: Mild basilar atelectasis/scarring. No consolidation. Liver: Normal. Gallbladder and bile ducts: Normal. No calcified stones. No ductal dilation. Pancreas: Normal. No ductal dilation. Spleen: Normal. No splenomegaly. Adrenal glands: Normal. No mass. Kidneys and ureters: No renal or ureteral calculi. No hydroureteronephrosis. Scattered cortical scarring. Stomach and bowel: Normal. No obstruction. No inflammatory changes appreciated. Appendix: No evidence of appendicitis. Intraperitoneal space: No free air. No significant fluid collection. Vasculature: No abdominal aortic aneurysm. Lymph nodes: Unremarkable. No enlarged lymph nodes. Urinary bladder: Bladder partially filled. No stones. Reproductive: Normal non-contrast appearance uterus. Incidental 2.1 cm oval right adnexal hypodensity consistent with dominant ovarian follicle. Bones/joints: No acute or aggressive osseous lesions. Soft tissues: Unremarkable. CT/CT kidney stone [id number] IMPRESSION: No urinary tract calculi or hydronephrosis. No acute findings on noncontrast CT.
--- NOTE | 2021-09-08 14:28 | W.ED.FEMALGU ---
Documented by User: MARIA DEL CARMEN Collier 09/08/21 15:55 HPI - Female Genitourinary General: Chief complaint: Urogenital-Female Stated complaint: Kidney stones, migraine, urinary tract infection Time Seen by Provider: 09/08/21 14:24 History of Present Illness: Patient complained about the left flank pain rating into her groin. This started yesterday. She was seen and treated for UTI yesterday from the emergency amatory clinic and [place]. Patient said she felt like she had fever and chills earlier today. She says the pain is unbearable. Does note some blood in her urine. Denies any other problems besides nausea Associated symptoms: Reports abdominal pain; Deny headache(s) Date of Last Menstrual Period: 01/26/21 Review of Systems Narrative: Currently on pain medication antibiotic for UTI Const: Denies: fever(s) or chills Eyes: Denies: eye discomfort ENMT: Denies: throat pain Card: Denies: chest pain or dyspnea on exertion Resp: Denies: dyspnea or non-productive cough GI: Reports: abdominal pain; Denies: change in bowel habits : Reports: flank pain (Left side) and hematuria Musc: Denies: joint pain Skin/Breast: Denies: rash Neuro: Denies: headache(s) Psych: Denies: anxiety or depression Henry/Lymph: Denies: easy bruising or enlarged lymph nodes PFSH ED PFSH: Medical History Crohn's disease Degenerative disc disease Migraine Pulmonary embolism Rheumatoid arthritis Surgical History History of colonoscopy History of tubal ligation Social History Smoking and tobacco status: current every day smoker Alcohol intake: current Alcohol intake frequency: holidays/special occasions only Adopted: No Number of children: 3 service: No History of recent travel: No Female Reproductive History: Date of last menstrual period: 01/26/21 Physical Exam Const: COMMON NORMALS: no acute distress, patient oriented x3 and alert HENMT: COMMON NORMALS: normocephalic HEAD & SCALP: normocephalic Eye: COMMON NORMALS: EOMs intact bilaterally Neck/C-Spine: COMMON NORMALS: no JVD Resp: COMMON NORMALS: normal respiratory effort and No use of accessory muscles Cardio: COMMON NORMALS: no JVD RATE: tachycardic GI: INSPECTION: Yes normal to inspection : OTHER: Flank pain left side Extremity: COMMON NORMALS: normal to inspection and full ROM Neuro: COMMON NORMALS: patient oriented x3 SENSORIUM/ORIENTATION: Yes alert Psych: COMMON NORMALS: mental status grossly normal Skin: COMMON NORMALS: no rashes or lesions noted GENERAL SKIN EXAM: no rashes or lesions noted Course Vital Signs: Vital signs: Vital Signs Temperature 98.2 F 09/08/21 13:22 Pulse Rate 119 H 09/08/21 13:22 Respiratory Rate 20 H 09/08/21 14:52 Blood Pressure 129/78 09/08/21 13:22 Pulse Oximetry 97 09/08/21 14:52 MDM - Female Medical Decision Making Patient presents with a left flank pain was diagnosed to kidney stones and UTI yesterday. UA supports UTI. CT was negative for any findings of kidney stone. Patient responded well to pain medication. Patient is asked to continue antibiotic she was prescribed and she was given 1 g Rocephin here in the ER. Patient is follow-up with her primary care clinic first next week. Lab Data : 09/08/21 14:23 09/08/21 14:23 Radiology Impressions Abdomen/Pelvis CT 09/08/21 14:27 IMPRESSION: No urinary tract calculi or hydronephrosis. No acute findings on noncontrast CT. Laboratory Results WBC 13.2 10^3/uL (4.0-10.0) H 09/08/21 14: RBC 4.50 10^6/uL (4.1-5.3) 09/08/21 14: Hgb 13.8 g/dL (11.5-15.3) 09/08/21 14: Hct 41.1 % (37.0-47.0) 09/08/21 14: MCV 91.3 fl (81-99) 09/08/21 14: MCH 30.7 pg (28.0-34.0) 09/08/21 14: MCHC 33.6 g/dL (30.0-36.0) 09/08/21 14: RDW 11.9 % (12.1-15.1) L 09/08/21 14: Plt Count 256 10^3/cmm (130-400) 09/08/21 14: MPV 9.8 fL (7.4-10.4) 09/08/21 14: Neut % (Auto) 82.1 % 09/08/21 14: Lymph % (Auto) 8.3 % 09/08/21 14: [place] % (Auto) 8.9 % 09/08/21 14: Eos % (Auto) 0.1 % 09/08/21 14: Baso % (Auto) 0.3 % 09/08/21: Neut # (Auto) 10.82 10^3/uL (1.8-7.7) H 09/08/21: Lymph # (Auto) 1.1 10^3/uL (0.8-4.8) 09/08/21: Sullivan # (Auto) 1.2 10^3/uL (0.2-0.9) H 09/08/21: Eos # (Auto) 0.0 10^3/uL (0.0-0.8) 09/08/21 14: Baso # (Auto) 0.0 10^3/uL (0.0-0.1) 09/08/21: Nucleated RBC % (auto) 0 % 09/08/21: Nucleated RBCs # 0.0 /100WBC 09/08/21 14: Sodium 137 mmol/L (136-145) 09/08/21 14: Potassium 3.8 mmol/L (3.5-5.1) 09/08/21 14: Chloride 101 mmol/L (98-107) 09/08/21 14: Carbon Dioxide 23 mmol/L (22-29) 09/08/21 14: Anion Gap 16.8 (5-19) 09/08/21 14: BUN 7 mg/dL (6-20) 09/08/21 14: Creatinine 0.7 mg/dL (0.5-0.9) 09/08/21 14: GFR Calculation 90.5 mL/min (90-130) 09/08/21 14: Glucose 117 mg/dL (65-115) H 09/08/21 14:23 Calculated Osmolality 283 mOsm/kg (285-295) L 09/08/21 14: Lactate 1.3 mmol/L (0.5-2.2) 09/08/21 14: Calcium 9.5 mg/dL (8.5-10.5) 09/08/21 14: Total Bilirubin 0.7 mg/dL (0.15-1.2) 09/08/21 14: AST 18 U/L (0-32) 09/08/21 14: ALT 37 U/L (0-33) H 09/08/21 14: Alkaline Phosphatase 152 IU/L (35-105) H 09/08/21 14: Total Protein 8.4 g/dL (6.6-8.7) 09/08/21 14: Albumin 4.1 g/dL (3.5-5.2) 09/08/21 14: Globulin 4.3 g/dL (1.3-4.6) 09/08/21 14: Lipase 21 U/L (13-60) 09/08/21 14:23 Urine Color Yellow (Yellow) 09/08/21 13:20 Urine Appearance Sl hazy (CLEAR) 09/08/21 13:20 Urine pH 6 (5-7) 09/08/21 13:20 Ur Specific [place] 1.010 (1.005-1.030) 09/08/21 13:20 Urine Protein Trace (Negative) 09/08/21 13:20 Urine Glucose (UA) Norm (Normal) 09/08/21 13:20 Urine Ketones Negative (Negative) 09/08/21 13:20 Urine Blood 2+ (Negative) H 09/08/21 13:20 Urine Nitrate Negative (Negative) 09/08/21 13:20 Urine Bilirubin Neg (Negative) 09/08/21 13:20 Urine Urobilinogen Norm mg/dL (Negative) 09/08/21 13:20 Ur Leukocyte Esterase 1+ (Negative) H 09/08/21 13:20 Urine RBC 5-10 /hpf (0-2) H 09/08/21 13:20 Urine WBC 15-25 /hpf (0-5) H 09/08/21 13:20 Ur Squamous Epith Cells 0-4 /hpf (0-5) H 09/08/21 13:20 Amorphous Sediment Not Reportable 09/08/21 13:20 Urine Bacteria 2+ /hpf (NONE) H 09/08/21 13:20 Discharge Plan Discharge Patient Disposition: Home Clinical Impression: Left flank pain, UTI (urinary tract infection) Condition: Stable Prescriptions: No Action ondansetron HCl [Zofran] 4 mg tablet 4 mg PO Q8H PRN (Reason: nausea and vomiting) Qty: 20 0RF eszopiclone 3 mg tablet 3 mg PO BEDTIME 0RF multivitamin Tablet 1 tab PO DAILY 0RF buspirone [BuSpar] 5 mg Tablet 5 mg PO TID 0RF atorvastatin 10 mg tablet 10 mg PO QAM 0RF citalopram [Celexa] 10 mg Tablet 10 mg PO DAILY 0RF diphenhydramine HCl [Benadryl] 25 mg Capsule 25 - 50 mg PO PRN 0RF esomeprazole magnesium [Nexium] 40 mg Capsule,Delayed Release(Dr/Ec) 40 mg PO DAILY 0RF ropinirole 0.5 mg tablet 0.5 mg PO BEDTIME 0RF montelukast [Singulair] 10 mg Tablet 10 mg PO QPM 0RF budesonide-formoterol [Symbicort] 80-4.5 mcg/actuation Hfa Aerosol Inhaler 2 puff INHALATION BID 0RF melatonin 10 mg Tablet 10 mg PO PRN 0RF clonazepam 0.5 mg tablet 1 mg PO DAILY 0RF acetaminophen-codeine 300-30 mg tablet 300 tab PO TID 0RF Discharge Orders: Discharge ED (Routine); Ordered 09/08/21 Ordered By: Francis Clark Referrals: Marcelina Barajas DO [Primary Care Provider] - Discharge Diet: Usual diet Discharge Activity: Increase activity as tolerated Patient Instructions: Urinary Tract Infection in Women (ED) Activity Restrictions/Additional Instructions: Continue present antibiotics. Follow-up your primary care provider Friday or Friday for repeat urinalysis to make sure infection is cleared up. Continue take medication you have prescribed at home. Coding Level of Care Code ED Oncology Nurse for [place] Fwd Exam Comprehensive Documented by User: Marek Dawson DO 09/10/21 10:01 HPI - Female Genitourinary General: Chief complaint: Urogenital-Female Stated complaint: Kidney stones, migraine, urinary tract infection Time Seen by Provider: 09/08/21 14:24 PFSH ED PFSH: Medical History Crohn's disease Degenerative disc disease Migraine Pulmonary embolism Rheumatoid arthritis Surgical History History of colonoscopy History of tubal ligation Social History Smoking and tobacco status: current every day smoker Alcohol intake: current Alcohol intake frequency: holidays/special occasions only Adopted: No Number of children: 3 service: No History of recent travel: No Course Vital Signs: Vital signs: Vital Signs Temperature 98.2 F 09/08/21 13:22 Pulse Rate 119 H 09/08/21 13:22 Respiratory Rate 20 H 09/08/21 14:52 Blood Pressure 129/78 09/08/21 13:22 Pulse Oximetry 97 09/08/21 14:52 MDM - Female Medical Decision Making Patient presents with a left flank pain was diagnosed to kidney stones and UTI yesterday. UA supports UTI. CT was negative for any findings of kidney stone. Patient responded well to pain medication. Patient is asked to continue antibiotic she was prescribed and she was given 1 g Rocephin here in the ER. Patient is follow-up with her primary care clinic first next week. Chart reviewed and patient discussed with midlevel. Agree with assessment and plan. Lab Data : 09/08/21 14:23 09/08/21 14:23 Radiology Impressions Abdomen/Pelvis CT 09/08/21 14:27 IMPRESSION: No urinary tract calculi or hydronephrosis. No acute findings on noncontrast CT. Laboratory Results WBC 13.2 10^3/uL (4.0-10.0) H 09/08/21 14:23 RBC 4.50 10^6/uL (4.1-5.3) 09/08/21 14: Hgb 13.8 g/dL (11.5-15.3) 09/08/21 14: Hct 41.1 % (37.0-47.0) 09/08/21 14: MCV 91.3 fl (81-99) 09/08/21 14: MCH 30.7 pg (28.0-34.0) 09/08/21 14: MCHC 33.6 g/dL (30.0-36.0) 09/08/21: RDW 11.9 % (12.1-15.1) L 09/08/21 14: Plt Count 256 10^3/cmm (130-400) 09/08/21: MPV 9.8 fL (7.4-10.4) 09/08/21 14: Neut % (Auto) 82.1 % 09/08/21 14: Lymph % (Auto) 8.3 % 09/08/21 14: Sullivan % (Auto) 8.9 % 09/08/21 14: Eos % (Auto) 0.1 % 09/08/21: Baso % (Auto) 0.3 % 09/08/21: Neut # (Auto) 10.82 10^3/uL (1.8-7.7) H 09/08/21 14: Lymph # (Auto) 1.1 10^3/uL (0.8-4.8) 09/08/21: Sullivan # (Auto) 1.2 10^3/uL (0.2-0.9) H 09/08/21: Eos # (Auto) 0.0 10^3/uL (0.0-0.8) 09/08/21: Baso # (Auto) 0.0 10^3/uL (0.0-0.1) 09/08/21: Nucleated RBC % (auto) 0 % 09/08/21: Nucleated RBCs # 0.0 /100WBC 09/08/21 14: Sodium 137 mmol/L (136-145) 09/08/21 14: Potassium 3.8 mmol/L (3.5-5.1) 09/08/21 14: Chloride 101 mmol/L (98-107) 09/08/21 14: Carbon Dioxide 23 mmol/L (22-29) 09/08/21 14: Anion Gap 16.8 (5-19) 09/08/21 14: BUN 7 mg/dL (6-20) 09/08/21 14: Creatinine 0.7 mg/dL (0.5-0.9) 09/08/21 14: GFR Calculation 90.5 mL/min (90-130) 09/08/21 14: Glucose 117 mg/dL (65-115) H 09/08/21 14: Calculated Osmolality 283 mOsm/kg (285-295) L 09/08/21 14: Lactate 1.3 mmol/L (0.5-2.2) 09/08/21 14: Calcium 9.5 mg/dL (8.5-10.5) 09/08/21 14: Total Bilirubin 0.7 mg/dL (0.15-1.2) 09/08/21 14: AST 18 U/L (0-32) 09/08/21 14: ALT 37 U/L (0-33) H 09/08/21 14: Alkaline Phosphatase 152 IU/L (35-105) H 09/08/21 14: Total Protein 8.4 g/dL (6.6-8.7) 09/08/21 14: Albumin 4.1 g/dL (3.5-5.2) 09/08/21 14: Globulin 4.3 g/dL (1.3-4.6) 09/08/21 14: Lipase 21 U/L (13-60) 09/08/21 14:23 Urine Color Yellow (Yellow) 09/08/21 13:20 Urine Appearance Sl hazy (CLEAR) 09/08/21 13:20 Urine pH 6 (5-7) 09/08/21 13:20 Ur Specific [place] 1.010 (1.005-1.030) 09/08/21 13:20 Urine Protein Trace (Negative) 09/08/21 13:20 Urine Glucose (UA) Norm (Normal) 09/08/21 13:20 Urine Ketones Negative (Negative) 09/08/21 13:20 Urine Blood 2+ (Negative) H 09/08/21 13:20 Urine Nitrate Negative (Negative) 09/08/21 13:20 Urine Bilirubin Neg (Negative) 09/08/21 13:20 Urine Urobilinogen Norm mg/dL (Negative) 09/08/21 13:20 Ur Leukocyte Esterase 1+ (Negative) H 09/08/21 13:20 Urine RBC 5-10 /hpf (0-2) H 09/08/21 13:20 Urine WBC 15-25 /hpf (0-5) H 09/08/21 13:20 Ur Squamous Epith Cells 0-4 /hpf (0-5) H 09/08/21 13:20 Amorphous Sediment Not Reportable 09/08/21 13:20 Urine Bacteria 2+ /hpf (NONE) H 09/08/21 13:20 Discharge Plan Discharge Patient Disposition: Home Clinical Impression: Left flank pain, UTI (urinary tract infection) Condition: Stable Prescriptions: No Action ondansetron HCl [Zofran] 4 mg tablet 4 mg PO Q8H PRN (Reason: nausea and vomiting) Qty: 20 0RF eszopiclone 3 mg tablet 3 mg PO BEDTIME 0RF multivitamin Tablet 1 tab PO DAILY 0RF buspirone [BuSpar] 5 mg Tablet 5 mg PO TID 0RF atorvastatin 10 mg tablet 10 mg PO QAM 0RF citalopram [Celexa] 10 mg Tablet 10 mg PO DAILY 0RF diphenhydramine HCl [Benadryl] 25 mg Capsule 25 - 50 mg PO PRN 0RF esomeprazole magnesium [Nexium] 40 mg Capsule,Delayed Release(Dr/Ec) 40 mg PO DAILY 0RF ropinirole 0.5 mg tablet 0.5 mg PO BEDTIME 0RF montelukast [Singulair] 10 mg Tablet 10 mg PO QPM 0RF budesonide-formoterol [Symbicort] 80-4.5 mcg/actuation Hfa Aerosol Inhaler 2 puff INHALATION BID 0RF melatonin 10 mg Tablet 10 mg PO PRN 0RF clonazepam 0.5 mg tablet 1 mg PO DAILY 0RF acetaminophen-codeine 300-30 mg tablet 300 tab PO TID 0RF Discharge Orders: Discharge ED (Routine); Ordered 09/08/21 Ordered By: Francis Clark Referrals: Jenn,Marcelina L, DO [Primary Care Provider] - Discharge Diet: Usual diet Discharge Activity: Increase activity as tolerated Patient Instructions: Urinary Tract Infection in Women (ED) Activity Restrictions/Additional Instructions: Continue present antibiotics. Follow-up your primary care provider Friday or Friday for repeat urinalysis to make sure infection is cleared up. Continue take medication you have prescribed at home. Coding Level of Care Code ED Oncology Nurse for [place] Fwd Exam Comprehensive
[2021-09-08 14:31] LABS: Basophils % 0.3 %; Eosinophils % 0.1 %; Hematocrit 41.1 % (37.0-47.0); Hemoglobin 13.8 g/dL (11.5-15.3); Lymphocytes # 1.1 10^3/uL (0.8-4.8); Lymphocytes % 8.3 %; Mean Corpuscular HGB Conc 33.6 g/dL (30.0-36.0); Mean Corpuscular Hemoglobin 30.7 pg (28.0-34.0); Mean Corpuscular Volume 91.3 fl (81-99); Mean Platelet Volume 9.8 fL (7.4-10.4); Monocytes # 1.2 10^3/uL (0.2-0.9); Monocytes % 8.9 %; Neutrophils # 10.82 10^3/uL (1.8-7.7); Neutrophils % 82.1 %; Nucleated Red Blood Cells % 0 %; Platelet Count 256 10^3/cmm (130-400); Red Cell Distribution Width 11.9 % (12.1-15.1); White Blood Count 13.2 10^3/uL (4.0-10.0)
[2021-09-08 14:50] LABS: Alanine Aminotransferase 37 U/L (0-33); Albumin Level 4.1 g/dL (3.5-5.2); Alkaline Phosphatase 152 IU/L (35-105); Anion Gap 16.8 (5-19); Aspartate Amino Transferase 18 U/L (0-32); Blood Urea Nitrogen 7 mg/dL (6-20); Calcium 9.5 mg/dL (8.5-10.5); Carbon Dioxide 23 mmol/L (22-29); Chloride 101 mmol/L (98-107); Globulin 4.3 g/dL (1.3-4.6); Glomerular Filtration Rate 90.5 mL/min (90-130); Glucose 117 mg/dL (65-115); Lipase 21 U/L (13-60); Osmolality Calculated 283 mOsm/kg (285-295); Potassium 3.8 mmol/L (3.5-5.1); Sodium 137 mmol/L (136-145); Total Bilirubin 0.7 mg/dL (0.15-1.2); Total Protein 8.4 g/dL (6.6-8.7)
[2021-09-08] MEDS: ondansetron 2 mg/ML SDV 2 mL 4 MG IVP (14:50)
[2021-09-08 14:51] LABS: Lactate (Lactic Acid level) 1.3 mmol/L (0.5-2.2)
[2021-09-08 14:52] VITALS: RESP 20; O2SAT 97
[2021-09-08] MEDS: HYDROmorphone 1 mg/mL INJ 1 mL 0.5 MG IVP (14:52)
[2021-09-08] MEDS: sodium chloride 0.9% 1,000 ML 999 ML IV (15:02)
[2021-09-08] MEDS: cefTRIAXone 1,000 MG in sodium chloride 0.9% (plus) 50 ML 100 MG IV (15:02)
== END 2021-09-08 15:55 | disposition home or self-care (01) ==
PROVIDERS: Emergency Medicine; Emergency Provider Nurse Practitioner Family; PCP Family Medicine
DX: N39.0 Urinary tract infection, site not specified (principal); R10.9 Unspecified abdominal pain
CPT/HCPCS: 74176; 80053; 81001; 83605; 83690; 85025; 87086; 96365; 96375; 99284; J0696; J1170; J2405; J7030